=== PATIENT | female | born 1955 | race Caucasian/White ===

== ENCOUNTER → 2016-09-10 | Outpatient (REF) | payer BC ==
[~2016-09-10] MED LIST: ALEV220C2 PO; ASPI1TAB PO; FLUT11IN INH; LISI20TA3 PO; METF500T PO; PAXI20TA3 PO; PRED10TA PO; PROA1AER IN; ZITH250T PO
[2016-09-10 14:23] LABS: ALBUMIN 3.6 GM/DL (3.2-5.2); ALBUMIN/GLOBULIN RATIO 1.13 (1.00-1.93); ALKALINE PHOSPHATASE 61 U/L (45-117); ALT/SGPT 21 U/L (12-78); ANION GAP 7 MEQ/L (8-16); AST/SGOT 14 U/L (15-37); BILIRUBIN,TOTAL 0.3 MG/DL (0.2-1.0); BLOOD UREA NITROGEN 21 MG/DL (7-18); CALCIUM LEVEL 9.4 MG/DL (8.5-10.1); CARBON DIOXIDE LEVEL 35 MEQ/L (21-32); CHLORIDE LEVEL 102 MEQ/L (98-107); CHOLESTEROL LEVEL 201 MG/DL (<200); CREATININE FOR GFR 0.69 MG/DL (0.55-1.02); GLOMERULAR FILTRATION RATE > 60.0 (>51); GLUCOSE, FASTING 123 MG/DL (70-105); POTASSIUM SERUM 4.9 MEQ/L (3.5-5.1); SODIUM LEVEL 144 MEQ/L (136-145); TOTAL PROTEIN 6.8 GM/DL (6.4-8.2); TRIGLYCERIDES LEVEL 147 MG/DL (<150)
== END ==
LOC: M SFHCSACK 08:59
PROVIDERS: ATTEND Physician Assistant
DX: I10 Essential (primary) hypertension (principal); E11.69 Type 2 diabetes mellitus with other specified complication; E11.21 Type 2 diabetes mellitus with diabetic nephropathy

== ENCOUNTER 2017-08-28 13:51 | Emergency (ER) | payer BC ==
[2017-08-28] MEDS: NS 1,000 ML IV (14:45)
[2017-08-28 15:10] LABS: BASO # 0.1 10^3/uL (0.0-0.2); BASO % 0.7 % (0.0-1.0); EOS # 0.1 10^3/uL (0.0-0.50); EOS % 1.7 % (0.0-3.0); HEMATOCRIT 42.8 % (36.0-47.0); HEMOGLOBIN 14.5 g/dl (12.0-16.0); IMMATURE GRANULOCYTE % 0.4 % (0-3.0); LYMPH # 2.1 10^3/uL (1.5-4.5); LYMPH % 29.3 % (24.0-44.0); MEAN CORPUSCULAR HEMOGLOBIN 32.3 pg (27.0-33.0); MEAN CORPUSCULAR HGB CONC 33.9 g/dl (32.0-36.5); MEAN CORPUSCULAR VOLUME 95.3 fl (80.0-96.0); MONO # 0.5 10^3/uL (0.0-0.8); MONO % 6.9 % (0.0-5.0); NEUTROPHILS # 4.4 10^3/uL (1.8-7.7); PLATELET COUNT, AUTOMATED 260 10^3/uL (150-450); RED BLOOD COUNT 4.49 10^6/uL (4.00-5.40); WHITE BLOOD COUNT 7.3 10^3/uL (4.0-10.0)
[2017-08-28 15:14] LABS: INR 0.92; PROTHROMBIN TIME 12.4 SECONDS (12.4-14.5)
[2017-08-28 15:23] LABS: ANION GAP 6 MEQ/L (8-16); BLOOD UREA NITROGEN 18 MG/DL (7-18); CALCIUM LEVEL 8.6 MG/DL (8.8-10.2); CARBON DIOXIDE LEVEL 31 MEQ/L (21-32); CHLORIDE LEVEL 105 MEQ/L (98-107); CREATININE FOR GFR 0.76 MG/DL (0.55-1.30); GLOMERULAR FILTRATION RATE > 60.0 (>45); GLUCOSE, FASTING 119 MG/DL (70-100); POTASSIUM SERUM 3.8 MEQ/L (3.5-5.1); SODIUM LEVEL 142 MEQ/L (136-145)
[2017-08-28 15:25] LABS: CPK CREATINE PHOSPHOKINASE 119 U/L (26-192); TROPONIN I < 0.02 NG/ML (< 0.10)
[2017-08-28 16:36] LABS: CK-MB VALUE MASS 1.8 NG/ML (0.0-3.6); MB/CK RELATIVE INDEX 1.51 (< OR =4)
== END 2017-08-28 17:10 | disposition home or self-care (01) ==
LOC: M ED 13:51
DX: R55 Syncope and collapse (principal); I10 Essential (primary) hypertension; E11.9 Type 2 diabetes mellitus without complications; F17.200 Nicotine dependence, unspecified, uncomplicated; Z79.899 Other long term (current) drug therapy; Z79.82 Long term (current) use of aspirin; Z79.84 Long term (current) use of oral hypoglycemic drugs; Z79.51 Long term (current) use of inhaled steroids
CPT/HCPCS: 71045

== ENCOUNTER → 2017-09-11 | Outpatient (REF) | payer BC ==
[2017-09-11 14:21] LABS: BASO # 0.1 10^3/uL (0.0-0.2); BASO % 0.9 % (0.0-1.0); EOS # 0.1 10^3/uL (0.0-0.50); EOS % 1.5 % (0.0-3.0); HEMATOCRIT 42.9 % (36.0-47.0); HEMOGLOBIN 14.4 g/dl (12.0-16.0); IMMATURE GRANULOCYTE % 0.3 % (0-3.0); LYMPH # 2.5 10^3/uL (1.5-4.5); LYMPH % 36.8 % (24.0-44.0); MEAN CORPUSCULAR HEMOGLOBIN 31.9 pg (27.0-33.0); MEAN CORPUSCULAR HGB CONC 33.6 g/dl (32.0-36.5); MEAN CORPUSCULAR VOLUME 94.9 fl (80.0-96.0); MONO # 0.5 10^3/uL (0.0-0.8); MONO % 7.2 % (0.0-5.0); NEUTROPHILS # 3.5 10^3/uL (1.8-7.7); NEUTROPHILS % 53.3 % (36.0-66.0); PLATELET COUNT, AUTOMATED 262 10^3/uL (150-450); RED BLOOD COUNT 4.52 10^6/uL (4.00-5.40); RED CELL DISTRIBUTION WIDTH 12.7 % (11.5-14.5); WHITE BLOOD COUNT 6.7 10^3/uL (4.0-10.0)
[2017-09-11 14:39] LABS: ALBUMIN 3.7 GM/DL (3.2-5.2); ALBUMIN/GLOBULIN RATIO 1.23 (1.00-1.93); ALKALINE PHOSPHATASE 54 U/L (45-117); ALT/SGPT 21 U/L (12-78); ANION GAP 8 MEQ/L (8-16); AST/SGOT 13 U/L (7-37); BILIRUBIN,TOTAL 0.4 MG/DL (0.2-1.0); BLOOD UREA NITROGEN 20 MG/DL (7-18); CALCIUM LEVEL 8.6 MG/DL (8.8-10.2); CARBON DIOXIDE LEVEL 31 MEQ/L (21-32); CHLORIDE LEVEL 102 MEQ/L (98-107); CHOLESTEROL LEVEL 183 MG/DL (<200); CREATININE FOR GFR 0.79 MG/DL (0.55-1.30); GLOMERULAR FILTRATION RATE > 60.0 (>45); GLUCOSE, FASTING 121 MG/DL (70-100); HDL CHOLESTEROL 57 MG/DL (>40); LDL CHOLESTEROL 99.2 MG/DL (<100); NON-HDL-C 126 MG/DL; POTASSIUM SERUM 4.7 MEQ/L (3.5-5.1); SODIUM LEVEL 141 MEQ/L (136-145); TOTAL PROTEIN 6.7 GM/DL (6.4-8.2); TRIGLYCERIDES LEVEL 134 MG/DL (<150)
[2017-09-11 14:45] LABS: ESTIMATED AVERAGE GLUCOSE 151 MG/DL (60-110); HEMOGLOBIN A1c 6.9 %
[2017-09-11 15:02] LABS: MAU/CREAT RATIO 133.8 MCG/MG (0.0-30.0)
[2017-09-11 15:14] LABS: TOTAL 25(OH) VITAMIN D 14.4 NG/ML (30.0-100.0)
== END ==
LOC: M SFHCSACK 10:47
DX: E78.2 Mixed hyperlipidemia (principal); I10 Essential (primary) hypertension; E11.21 Type 2 diabetes mellitus with diabetic nephropathy; E55.9 Vitamin D deficiency, unspecified
CPT/HCPCS: 80053

== ENCOUNTER → 2017-12-10 | Outpatient (REF) | payer BC | LOC: M SFHCWAGY 10:38 | DX: Z12.4 Encounter for screening for malignant neoplasm of cervix (principal) ==

== ENCOUNTER → 2017-12-10 | Outpatient (CLI) | payer BC | LOC: M WHC 09:18 | DX: Z12.31 Encounter for screening mammogram for malignant neoplasm of breast (principal) ==

== ENCOUNTER → 2018-01-28 | Outpatient (CLI) | payer BC ==
[2018-01-28 09:10] LABS: ABG BASE EXCESS -0.7 (-2.0-2.0); ABG HCO3 24.5 MEQ/L (22.0-26.0); ABG O2 SATURATION 90.3 % (95.0-99.0); ABG PARTIAL PRESSURE O2 58.8 mmHg (75.0-100.0); ABG STANDARD HCO3 23.8 MEQ/L (22.0-26.0); ABG TOTAL CO2 25.7 MEQ/L (23.0-31.0); ABG pH (ARTERIAL) 7.383 UNITS (7.350-7.450)
== END ==
LOC: M RAD 08:21
DX: Z12.2 Encounter for screening for malignant neoplasm of respiratory organs (principal); Z87.891 Personal history of nicotine dependence
CPT/HCPCS: G0297

== ENCOUNTER → 2018-01-31 | Outpatient (REF) | payer BC ==
[2018-01-31 15:22] LABS: BASO # 0.1 10^3/uL (0.0-0.2); BASO % 0.8 % (0.0-1.0); EOS # 0.2 10^3/uL (0.0-0.50); HEMATOCRIT 42.3 % (36.0-47.0); IMMATURE GRANULOCYTE % 0.3 % (0-3.0); LYMPH # 2.5 10^3/uL (1.5-4.5); LYMPH % 38.1 % (24.0-44.0); MEAN CORPUSCULAR HEMOGLOBIN 32.5 pg (27.0-33.0); MEAN CORPUSCULAR HGB CONC 33.1 g/dl (32.0-36.5); MEAN CORPUSCULAR VOLUME 98.1 fl (80.0-96.0); MONO # 0.5 10^3/uL (0.0-0.8); MONO % 6.8 % (0.0-5.0); NEUTROPHILS # 3.4 10^3/uL (1.8-7.7); RED BLOOD COUNT 4.31 10^6/uL (4.00-5.40); RED CELL DISTRIBUTION WIDTH 12.7 % (11.5-14.5); WHITE BLOOD COUNT 6.6 10^3/uL (4.0-10.0)
[2018-01-31 15:39] LABS: ESTIMATED AVERAGE GLUCOSE 146 MG/DL (60-110); HEMOGLOBIN A1c 6.7 %
[2018-01-31 15:51] LABS: ALBUMIN 3.4 GM/DL (3.2-5.2); ALBUMIN/GLOBULIN RATIO 1.06 (1.00-1.93); ALKALINE PHOSPHATASE 46 U/L (45-117); ALT/SGPT 21 U/L (12-78); ANION GAP 7 MEQ/L (8-16); AST/SGOT 18 U/L (7-37); BILIRUBIN,TOTAL 0.3 MG/DL (0.2-1.0); BLOOD UREA NITROGEN 20 MG/DL (7-18); CALCIUM LEVEL 8.5 MG/DL (8.8-10.2); CARBON DIOXIDE LEVEL 30 MEQ/L (21-32); CHLORIDE LEVEL 108 MEQ/L (98-107); CREATININE FOR GFR 0.72 MG/DL (0.55-1.30); GLOMERULAR FILTRATION RATE > 60.0 (>45); GLUCOSE, FASTING 87 MG/DL (70-100); SODIUM LEVEL 145 MEQ/L (136-145); TOTAL PROTEIN 6.6 GM/DL (6.4-8.2)
[2018-01-31 15:57] LABS: POS COUNT POS FLAG
[2018-01-31 15:58] LABS: PLATELET COUNT, AUTOMATED 228 10^3/uL (150-450)
[2018-01-31 16:01] LABS: POTASSIUM SERUM 5.5 MEQ/L (3.5-5.1)
== END ==
LOC: M SFHCSACK 08:57
DX: I10 Essential (primary) hypertension (principal); E11.21 Type 2 diabetes mellitus with diabetic nephropathy; Z13.29 Encounter for screening for other suspected endocrine disorder; E55.9 Vitamin D deficiency, unspecified
CPT/HCPCS: 84443

== ENCOUNTER → 2018-05-26 | Outpatient (REF) | payer BC ==
[2018-05-26 14:15] LABS: BASO # 0.1 10^3/uL (0.0-0.2); BASO % 0.7 % (0.0-1.0); EOS # 0.2 10^3/uL (0.0-0.50); EOS % 3.1 % (0.0-3.0); HEMATOCRIT 43.7 % (36.0-47.0); HEMOGLOBIN 14.4 g/dl (12.0-15.5); IMMATURE GRANULOCYTE % 0.3 % (0-3.0); LYMPH # 2.4 10^3/uL (1.5-4.5); LYMPH % 32.9 % (24.0-44.0); MEAN CORPUSCULAR HEMOGLOBIN 32.5 pg (27.0-33.0); MEAN CORPUSCULAR VOLUME 98.6 fl (80.0-96.0); MONO # 0.5 10^3/uL (0.0-0.8); PLATELET COUNT, AUTOMATED 297 10^3/uL (150-450); RED BLOOD COUNT 4.43 10^6/uL (4.00-5.40); RED CELL DISTRIBUTION WIDTH 13.3 % (11.5-14.5); WHITE BLOOD COUNT 7.2 10^3/uL (4.0-10.0)
[2018-05-26 14:17] LABS: ALBUMIN 3.3 GM/DL (3.2-5.2); ALBUMIN/GLOBULIN RATIO 1.06 (1.00-1.93); ALKALINE PHOSPHATASE 70 U/L (45-117); ALT/SGPT 23 U/L (12-78); ANION GAP 8 MEQ/L (8-16); AST/SGOT 14 U/L (7-37); BILIRUBIN,TOTAL 0.2 MG/DL (0.2-1.0); BLOOD UREA NITROGEN 21 MG/DL (7-18); CALCIUM LEVEL 8.3 MG/DL (8.8-10.2); CARBON DIOXIDE LEVEL 32 MEQ/L (21-32); CHLORIDE LEVEL 104 MEQ/L (98-107); CHOLESTEROL LEVEL 214 MG/DL (<200); CHOLESTEROL RISK RATIO 3.821 (<5); CREATININE FOR GFR 0.72 MG/DL (0.55-1.30); GLOMERULAR FILTRATION RATE > 60.0 (>45); GLUCOSE, FASTING 102 MG/DL (70-100); HDL CHOLESTEROL 56 MG/DL (>40); LDL CHOLESTEROL 132 MG/DL (<100); NON-HDL-C 158 MG/DL; POTASSIUM SERUM 4.3 MEQ/L (3.5-5.1); SODIUM LEVEL 144 MEQ/L (136-145); TOTAL PROTEIN 6.4 GM/DL (6.4-8.2); TRIGLYCERIDES LEVEL 131 MG/DL (<150)
[2018-05-26 14:26] LABS: TOTAL 25(OH) VITAMIN D 33.9 NG/ML (30.0-100.0)
[2018-05-26 14:55] LABS: ESTIMATED AVERAGE GLUCOSE 137 MG/DL (60-110); HEMOGLOBIN A1c 6.4 %
== END ==
LOC: M SFHCSACK 09:29
DX: I10 Essential (primary) hypertension (principal); E78.2 Mixed hyperlipidemia; E11.9 Type 2 diabetes mellitus without complications; E55.9 Vitamin D deficiency, unspecified
CPT/HCPCS: 80053

== ENCOUNTER → 2018-12-03 | Outpatient (REF) | payer BC ==
[~2018-12-03] MED LIST changes: -ASPI1TAB PO; +ASPI81TA26 PO; -METF500T PO; +METF500T13 PO; +PAXI20TA29 PO; -PAXI20TA3 PO; +PRED-351 PO; -PRED10TA PO; -PROA1AER IN; +PROAAER10 IN
[2018-12-03 14:16] LABS: BASO # 0.1 10^3/uL (0.0-0.2); BASO % 0.8 % (0.0-1.0); EOS # 0.2 10^3/uL (0.0-0.50); HEMATOCRIT 45.6 % (36.0-47.0); HEMOGLOBIN 14.9 g/dl (12.0-15.5); LYMPH # 1.9 10^3/uL (1.5-4.5); LYMPH % 32.4 % (24.0-44.0); MEAN CORPUSCULAR HEMOGLOBIN 32.4 pg (27.0-33.0); MEAN CORPUSCULAR HGB CONC 32.7 g/dl (32.0-36.5); MEAN CORPUSCULAR VOLUME 99.1 fl (80.0-96.0); MONO # 0.5 10^3/uL (0.0-0.8); MONO % 7.5 % (0.0-5.0); NEUTROPHILS # 3.4 10^3/uL (1.8-7.7); NEUTROPHILS % 56.1 % (36.0-66.0); PLATELET COUNT, AUTOMATED 257 10^3/uL (150-450)
[2018-12-03 14:45] LABS: ALBUMIN 3.3 GM/DL (3.2-5.2); ALT/SGPT 24 U/L (12-78); BILIRUBIN,TOTAL 0.3 MG/DL (0.2-1.0); BLOOD UREA NITROGEN 18 MG/DL (7-18); CALCIUM LEVEL 8.4 MG/DL (8.8-10.2); CARBON DIOXIDE LEVEL 30 MEQ/L (21-32); CHLORIDE LEVEL 108 MEQ/L (98-107); CHOLESTEROL LEVEL 228 MG/DL (<200); CHOLESTEROL RISK RATIO 3.562 (<5); CREATININE FOR GFR 0.66 MG/DL (0.55-1.30); GLOMERULAR FILTRATION RATE > 60.0 (>45); GLUCOSE, FASTING 120 MG/DL (70-100); HDL CHOLESTEROL 64 MG/DL (>40); LDL CHOLESTEROL 139 MG/DL (<100); NON-HDL-C 164 MG/DL; POTASSIUM SERUM 4.1 MEQ/L (3.5-5.1); SODIUM LEVEL 143 MEQ/L (136-145); TOTAL PROTEIN 7.1 GM/DL (6.4-8.2); TRIGLYCERIDES LEVEL 127 MG/DL (<150)
[2018-12-03 14:51] LABS: TOTAL 25(OH) VITAMIN D 18.8 NG/ML (30.0-100.0)
[2018-12-03 14:57] LABS: CREATININE, URINE 90.2 MG/DL; MALB URINE SIEMENS 34.3 MG/L
[2018-12-03 15:37] LABS: HEMOGLOBIN A1c 7.1 %
== END ==
LOC: M SFHCSACK 09:22
PROVIDERS: ATTEND Physician Assistant
DX: I10 Essential (primary) hypertension (principal); E78.2 Mixed hyperlipidemia; E11.21 Type 2 diabetes mellitus with diabetic nephropathy; E55.9 Vitamin D deficiency, unspecified

== ENCOUNTER → 2018-12-16 | Outpatient (CLI) | payer BC ==
--- NOTE | 2018-12-16 10:49 | REPMRS ---
Patient History The patient states she had a clinical breast exam in 11/2018. Patient is postmenopausal. Family history of ovarian cancer at age 50 or over in maternal aunt, ovarian cancer at age 50 or over in paternal cousin. No Hormone Replacement Therapy Digital Woman Screen Mammo: December 16, 2018 - Exam #: [id number] Bilateral CC and MLO view(s) were taken. Technologist: Chastity Sahu, Technologist Prior study comparison: December 10, 2017, bilateral digital woman screen mammo performed at [facility]. April 20, 2010, bilateral screening mammogram, performed at [facility]. December 01, 2008, bilateral screening mammogram, performed at [facility]. FINDINGS: There are scattered fibroglandular densities. There has been no change in the appearance of the mammogram from the prior studies. There is a mild amount of scattered fibroglandular density which is fairly symmetric. There is no interval development of dominant mass, architectural distortion, or clustered microcalcification suggestive of malignancy. 3-D tomosynthesis shows no additional findings. Assessment: BI-RADS/ACR category 1 mammogram. Negative Mammogram. Recommendation Routine screening mammogram of both breasts in 1 year (for women over age 40). This patient's Lifetime Breast Cancer RIsk is estimated at 5.5 %. This mammogram was interpreted with the aid of an FDA-approved computer-aided dectection system. Electronically Signed By: Dada Fairchild MD 12/16/18 [id number]
== END ==
LOC: M WHC 09:07
PROVIDERS: ATTEND Nurse Practitioner Women's Health
DX: Z12.31 Encounter for screening mammogram for malignant neoplasm of breast (principal); Z78.0 Asymptomatic menopausal state

== ENCOUNTER → 2019-03-31 | Outpatient (CLI) | payer BC ==
[~2019-03-31] MED LIST changes: +LISI20TA20 PO; -LISI20TA3 PO
--- NOTE | 2019-03-31 10:37 | REP ---
REASON FOR EXAM: Tobacco abuse. COMPARISON EXAM: 01/28/2018. As per the protocol only lung window images were sent to the read station for interpretation. There is no significant change compared to the prior exam. There are no new abnormal nodules, mass, or opacities. Grossly the mediastinum and pulmonary pardeep are stable. Grossly the imaged upper abdomen and imaged osseous structures are stable. There are no pleural or pericardial effusions. IMPRESSION: No change from the prior exam. Lung-RADS category 1 exam. According to the revised Fleischner's Society criteria yearly CT screening is recommended. Electronically Signed by Wei Rosario DO 03/31/2019 02:37 P
== END ==
LOC: M RAD 09:27
PROVIDERS: ATTEND Internal Medicine Pulmonary Disease
DX: F17.210 Nicotine dependence, cigarettes, uncomplicated (principal)

== ENCOUNTER 2019-09-05 00:25 | Inpatient (IN) | payer BC ==
[2019-09-05] VITALS (7 sets, daily range): BP systolic 130–144; BP diastolic 63–80
[~2019-09-05] VITALS: Ht 162.6 cm; Wt 111.6 kg
[2019-09-05 01:17] LABS: BASO # 0.1 10^3/uL (0.0-0.2); BASO % 0.4 % (0.0-1.0); EOS # 0.1 10^3/uL (0.0-0.5); EOS % 0.7 % (0.0-3.0); HEMATOCRIT 45.3 % (36.0-47.0); HEMOGLOBIN 14.9 g/dl (12.0-15.5); LYMPH # 1.6 10^3/uL (1.5-5.0); LYMPH % 11.9 % (24.0-44.0); MEAN CORPUSCULAR HEMOGLOBIN 31.7 pg (27.0-33.0); MEAN CORPUSCULAR HGB CONC 32.9 g/dl (32.0-36.5); MEAN CORPUSCULAR VOLUME 96.4 fl (80.0-96.0); MONO # 0.9 10^3/uL (0.0-0.8); MONO % 6.5 % (0.0-5.0); NEUTROPHILS # 11.1 10^3/uL (1.5-8.5); NEUTROPHILS % 80.1 % (36.0-66.0); PLATELET COUNT, AUTOMATED 224 10^3/uL (150-450); WHITE BLOOD COUNT 13.8 10^3/uL (4.0-10.0)
[2019-09-05] MEDS: MORPHINE 4 MG/ML 1ML VIAL/SYRINGE (J2270) IV PRN ×2 (01:39→03:44)
[2019-09-05] MEDS ORDERED: ISOVUE-370 76% 100ML VIAL (Q9967) As Ordered ONE (01:42)
[2019-09-05 02:02] LABS: ALBUMIN 3.4 GM/DL (3.2-5.2); ALT/SGPT 21 U/L (12-78); BILIRUBIN,DIRECT < 0.1 MG/DL (0.0-0.2); BILIRUBIN,TOTAL 0.5 MG/DL (0.2-1.0); CK-MB VALUE MASS 1.2 NG/ML (<3.6); CPK CREATINE PHOSPHOKINASE 213 U/L (26-192); LIPASE 74541 U/L (73-393); MB/CK RELATIVE INDEX 0.56 (< OR =4); TOTAL PROTEIN 6.9 GM/DL (6.4-8.2); TROPONIN I < 0.02 NG/ML (< 0.10)
--- NOTE | 2019-09-05 02:24 | REPVR ---
PROCEDURE INFORMATION: Exam: CT Abdomen And Pelvis With Contrast Exam date and time: 09/05/2019 1:01 AM Age: 63 years old Clinical indication: Abdominal pain; Epigastric; Additional info: Generalized abd pain TECHNIQUE: Imaging protocol: Computed tomography of the abdomen and pelvis with intravenous contrast. Radiation optimization: All CT scans at this facility use at least one of these dose optimization techniques: automated exposure control; mA and/or kV adjustment per patient size (includes targeted exams where dose is matched to clinical indication); or iterative reconstruction. Contrast material: ISO; Contrast volume: 100 ml; Contrast route: AC; COMPARISON: No relevant prior studies available. FINDINGS: Liver: Hepatomegaly and steatosis. Gallbladder and bile ducts: Normal. No calcified stones. No ductal dilation. Pancreas: Pancreatic edema with extensive peripancreatic fluid. Spleen: Normal. No splenomegaly. Adrenals: Normal. No mass. Kidneys and ureters: Nonobstructing bilateral nephrolithiasis. Stomach and bowel: Diverticulosis of the colon. No evidence of acute diverticulitis. Appendix: No evidence of appendicitis. Intraperitoneal space: Unremarkable. No free air. No significant fluid collection. Vasculature: Atherosclerotic disease of the abdominal aorta. Lymph nodes: Unremarkable. No enlarged lymph nodes. Bladder: Unremarkable as visualized. Reproductive: Unremarkable as visualized. Bones/joints: Degenerative disease and facet hypertrophy at L4-L5. Mild stenosis of the spinal canal and neural foramina at this level. Soft tissues: Unremarkable. IMPRESSION: Acute pancreatitis. Electronically signed by: Sukhwinder Eduardo On 09/05/2019 02:23:53 AM
[2019-09-05] MEDS ORDERED: NS 3,140 ML in IV 1 EA IV ONE (02:45)
[2019-09-05] MEDS ORDERED: DEXTROSE 50% 50 ML SYRINGE IV PRN (03:00)
[2019-09-05] MEDS ORDERED: GLUCAGON FOR INJ 1 MG VIAL (J1610) SC PRN (03:00)
[2019-09-05] MEDS ORDERED: ONDANSETRON 4MG/2ML VIAL (J2405) IV PRN (03:00)
[2019-09-05] MEDS ORDERED: GLUCOSE 4 GM CHEW TABLET PO PRN (03:00)
[2019-09-05] MEDS ORDERED: FLUT11IN INH (03:09)
[2019-09-05] MEDS ORDERED: PARO40TA3 PO (03:09)
[2019-09-05] MEDS ORDERED: LISI-672 PO (03:09)
[2019-09-05] MEDS ORDERED: HYDR25TAB PO (03:09)
[2019-09-05] MEDS ORDERED: PROAAER10 INH (03:10)
--- NOTE | 2019-09-05 03:12 | HPEPDOC ---
[facility] Medical History & Physical Date of Admission Sep 05, 2019 Date of Service: Sep 05, 2019 Primary Care Physician: Ivana Herrera PA-C ER Attending Physician: YEHUDA DELAROSA MD History and Physical TIME OF SERVICE: 3:15 AM CHIEF COMPLAINT: Abdominal pain HISTORY OF PRESENT ILLNESS: This is a 63-year-old female who presented with complaints of sudden onset 10 out of 10 in severity, epigastric abdominal pain that radiates to her back. It is made worse when she takes a deep breath. The pain began around 9 PM after she drank a glass of wine. She also had chills, poor appeite, 6 episodes of nonbloody emesis, and 5 episodes of nonbloody diarrhea in the last [address] Cruz, her lipase was 74,[address] showed findings consistent with pancreatitis. REVIEW OF SYSTEMS: 12 point review of systems negative except as listed in HPI PAST MEDICAL/ SURGICAL HISTORY: Olq-bynndnw-pstjyoexc diabetes. COPD Anxiety/depression. Chronic HTN Dyslipidemia. Carpal tunnel syndrome. Left oophorectomy SOCIAL HISTORY: quit smoking drinks alcohol occasionally FAMILY HISTORY: Father as a result of liver failure and alcoholism. Mother has hypertension and leukemia. Siblings have hypertension. Maternal grandmother had diabetes Maternal aunt and paternal cousin had ovarian cancer ALLERGIES: Please see below. HOME MEDICATIONS: Please see below. Vital Signs Date Time Temp Pulse Resp B/P (MAP) Pulse Ox O2 Delivery O2 Flow Rate FiO2 09/05/19 00:34 98.9 81 18 174/91 99 Nasal Cannula 2.0 PHYSICAL EXAMINATION: GEN: well-nourished / well developed INTEGUMENT: not flushed/ not jaundice / no trejo or herring's sign HEENT: NCAT / lips acyanotic /mucus membranes moist and pink / mild conjunctival injection CVS: RRR/NMRG/ no JVP / radial pulses intact / + extremity edema LUNGS: clear to auscultation bilaterally on room air ABDOMEN: Contour (obese) / bowel sounds are present / the abdomen is tympanic on percussion, soft & tender in the epigastric region / there is no rebound tenderness MSK/EXTREMITIES: range of motion intact in all 4 extremities NEURO: CN 2-12 are grossly intact / speech is not dysarthric PSYCH: alert and oriented to person place and time/ able to understand and follow all commands LABORATORY DATA: Total Bilirubin 0.5, Direct Bilirubin < 0.1, Aspartate Amino Transf (AST/SGOT) 39H, Alanine Aminotransferase (ALT/SGPT) 21, Alkaline Phosphatase 55, Total Creatine Kinase 213H, Creatine Kinase MB 1.2, Creatine Kinase MB Relative Index 0.56, Troponin I < 0.02, Total Protein 6.9, Albumin 3.4, Albumin/Globulin Ratio 0.97L, Lipase [id number] POC Glucose (Misc Panel) 183H, POC Sodium (Misc Panel) 140, POC Potassium (Misc Panel) 5.1, POC Chloride (Misc Panel) 100, POC Total CO2 (Misc Panel) 34.0H, POC Blood Urea Nitrogen (Misc Panel 35H, POC Ionized Calcium (Misc Panel) 4.4L, POC Creatinine (Misc Panel) 0.8, POC Hematocrit (Misc Panel) 47.0 IMAGING: CT of the abdomen " IMPRESSION: Acute pancreatitis." ASSESSMENT: Ms. Parrish is a 63-year-old with a past medical history of NIDDM, HTN, anxiety, depression, and dyslipidemia who is admitted for management of acute pancreatitis, possibly due to alcohol use. PLAN: 1. Acute Pancreatitis Diagnosis made on the basis of abdominal pain + elevated lipase + CT findings c/w pancreatitis May have been triggered by alcohol use. The AST is slightly elevated but the rest of LFTs are within normal limits Harmless Acute Pancreatitis Score to r/o need for ICU admission for 1st episode of pancreatitis = 0 points - not severe Plan: Since she doesn't have SIRS criteria we will admit her to the medical floor/ NPO/ LR at 250-500 ml/H / f/u serum ETO / IV toradol PRN for pain / zofran for vomiting 2. Alcohol Abuse ? - Plan: CIWA protocol w fall and seizure precautions, IV Ativan, folic acid and thiamine 3. Type II NIDDM - Plan: diabetic diet / f/u accuchecks & A1C / hypoglycemia protocol / sliding scale insulin / hold oral anti-glycemics 4. Chronic HTN - Plan: control pain / resume lisinopril and hydrochlorothiazide in the morning 5. Obesity with BMI of 39.5 complicates care. Since her BMI >35 and she has DM she is candidate for bariatric surgery. - Plan: f/u A1C / shecan f/u w her PCP for STOP BANG questionnaire, mill roll rewinder consult & referral to Bariatric Surgeon / recommend cardiovascular exercise for 40 min 4-5 days a week DVT PROPHYLAXIS: Lovenox DISPOSITION: Home after more than 2 midnight's stay Home Medications Scheduled Aspirin (Aspirin EC) 81 Mg Tab, 81 MG PO DAILY Fluticasone Propionate (Flovent Hfa) 110 Mcg/Act Aer.w.adap, 2 PUFF INH BID Hydrochlorothiazide (Hydrochlorothiazide) 25 Mg Tablet, 25 MG PO DAILY Lisinopril (Lisinopril) 30 Mg Tablet, 30 MG PO DAILY Metformin HCl (Metformin HCl) 500 Mg Tab, 1,000 MG PO BID Paroxetine HCl (Paroxetine) 40 Mg Tablet, 40 MG PO DAILY Scheduled PRN Albuterol Sulfate (Proair Hfa) 8.5 Gm Hfa.aer.ad, 2 PUFF INH Q4-6HP PRN for wheezing Allergies Coded Allergies: No Known Drug Allergies (Verified Allergy, Unknown, 09/05/19) A-FIB/CHADSVASC A-FIB History Current/History of A-Fib/PAF?: No Current PO Anticoag Therapy: No YEHUDA DELAROSA MD Sep 05, 2019 03:12
[2019-09-05] MEDS ORDERED: METOPROLOL 5 MG/5 ML VIAL IV PRN (03:30)
[2019-09-05] MEDS ORDERED: LORazepam 2 MG/ML VIAL (J2060) IV PRN ×2 (03:30→09:45)
[2019-09-05 03:44] LABS: HEMOGLOBIN A1c 6.4 %
[2019-09-05] MEDS ORDERED: VITA50005 PO (03:48)
[2019-09-05 04:21] LABS: ETHYL ALCOHOL (ETHANOL) < 0.003 % (0.000-0.010); LDH LACTATE DEHYDROGENASE 159 U/L (84-246)
[2019-09-05] MEDS: LR 1,000 ML IV SCH ×3 (05:23→17:14)
[2019-09-05] MEDS: HumaLOG INSULIN (NovoLOG) PER UNIT SC SCH ×3 (05:33→17:52)
[2019-09-05] MEDS: KETOROLAC 30 MG/ML VIAL (J1885) IV PRN ×3 (05:34→21:25)
[2019-09-05] MEDS ORDERED: metFORMIN (GLUCOPHAGE) 500 MG TAB PO SCH (08:00)
[2019-09-05] MEDS ORDERED: THIAMINE HCL 200 MG/2 ML VIAL (J3411) IM SCH (09:00)
[2019-09-05] MEDS ORDERED: hydroCHLOROthiazide 25 MG TAB PO SCH (09:00)
[2019-09-05] MEDS: ENOXAPARIN 40 MG/0.4 ML SYRINGE (J1650) SC SCH (09:20)
[2019-09-05] MEDS: THIAMINE 100 MG TAB PO SCH (09:20)
[2019-09-05] MEDS: lisinopriL 10 MG TAB PO SCH (09:20)
[2019-09-05] MEDS: PARoxetine 20 MG TAB PO SCH (09:20)
[2019-09-05] MEDS: FOLIC ACID 1 MG in NS 50 ML IV SCH (09:21)
--- NOTE | 2019-09-05 09:43 | IPN ---
DATE: 09/05/2019 PRIMARY CARE PROVIDER: JASON Krishnan, [facility] Joyce is on the hospitalist service with acute pancreatitis. She has not had this previously. She has a history of type 2 diabetes but is not on any medications known to cause this, chronic hypertension (is on angiotensin converting enzymes (VIANEY) inhibitors, a rare cause of pancreatitis), she does not have any significant alcohol intake and no history of biliary disease. She is still having abdominal pain, though it is better. No nausea, not running any fevers. Today is 140/70, pulse 70, respiratory rate 18, 95% oxygen saturation on three liters. General appearance: Resting in bed, no distress. HEENT: Unremarkable. Lungs: Clear. Heart: Regular rhythm. Abdomen: Soft, slightly tender, no masses, no ascites. Trace peripheral edema. LABORATORY DATA: No labs were ordered for this morning. IMPRESSION: 1. Acute pancreatitis. Continue just sips of clear liquid and will hydrate intravenously. If she continues to do well, we will advance her diet tomorrow. She is well-perfused and I am reducing her IV rate. 2. Type 2 diabetes. Sliding scale insulin with coverage. Stop her metformin in fact of the pancreatitis. 3. Hypertension. Stop her hydrochlorothiazide. She is receiving IV fluids so there is no role for a diuretic at this point. Continue lisinopril, unlikely lisinopril is the cause of her pancreatitis, though we do have to consider that possibility. 4. History of depression. Continue her Paxil 40 mg daily. 5. Question of alcohol abuse. I think it is unlikely that her alcohol intake is significant enough to be contributing to the pancreatitis. I am stopping the intramuscular (IM) thiamine, she can take that as easily orally as through intramuscular (IM) route.
[2019-09-05] MEDS ORDERED: ALBUTEROL 90 MCG/ACT 8GM HFA INHALER INH PRN (10:45)
--- NOTE | 2019-09-05 14:17 | REP ---
Chest x-ray: Two views. History: Increased oxygen demand. Comparison study: August 28, 2017. Findings: The lungs are symmetrically aerated and clear. There are degenerative changes in the thoracic spine. Heart size is normal. The aorta somewhat tortuous. Pulmonary vasculature is not increased. Impression: No active disease. Electronically Signed by Jhonatan Fairchild MD 09/05/2019 02:08 P
[2019-09-05] MEDS ORDERED: ALBUTEROL SULFATE 2.5 MG/0.5 ML INH NEB SOLN NEB PRN (14:30)
--- NOTE | 2019-09-05 18:45 | ECGEPIP ---
[facility] - ED Test Date: 2019-09-05 Pat Name: RANI PATEL Department: Room: [place] [address] Gender: Female Econometrician: anoop : 1955 Requested By: RICARDO Murrell Order Number: [id number] Reading MD: Shira Easley Measurements Intervals [place] Rate: 76 P: 55 TX: 129 QRS: 82 QRSD: 110 T: 37 QT: 388 QTc: 438 Interpretive Statements SINUS RHYTHM NSTTW abnormalities DECREASED RATE 08/28/17 Electronically Signed on 09-05-2019 18:45:19 EST by Shira Easley
[2019-09-05] MEDS: IPRATROPIUM 0.5MG/ALBUTEROL 2.5MG INH SOL UD 3ML (DUONEB)(J7620) NEB SCH (21:35)
[2019-09-05] MEDS: FLUTICASONE HFA 110 MCG 12 GM INHALER (FLOVENT) INH SCH (21:36)
[2019-09-06] VITALS (7 sets, daily range): BP systolic 110–158; BP diastolic 58–81
[2019-09-06] MEDS: LR 1,000 ML IV SCH ×4 (00:55→22:52)
[2019-09-06] MEDS: HumaLOG INSULIN (NovoLOG) PER UNIT SC SCH ×4 (01:09→21:00)
[2019-09-06] MEDS: IPRATROPIUM 0.5MG/ALBUTEROL 2.5MG INH SOL UD 3ML (DUONEB)(J7620) NEB SCH ×4 (02:03→20:00)
[2019-09-06 05:55] LABS: HEMATOCRIT 38.7 % (36.0-47.0); MEAN CORPUSCULAR HEMOGLOBIN 32.6 pg (27.0-33.0); MEAN CORPUSCULAR HGB CONC 32.6 g/dl (32.0-36.5); MEAN CORPUSCULAR VOLUME 100.3 fl (80.0-96.0); PLATELET COUNT, AUTOMATED 189 10^3/uL (150-450); RED BLOOD COUNT 3.86 10^6/uL (4.00-5.40); WHITE BLOOD COUNT 7.8 10^3/uL (4.0-10.0)
[2019-09-06 06:03] LABS: HEMOGLOBIN 12.6 g/dl (12.0-15.5)
[2019-09-06 06:15] LABS: MAGNESIUM LEVEL 1.2 MG/DL (1.8-2.4)
[2019-09-06] MEDS: FLUTICASONE HFA 110 MCG 12 GM INHALER (FLOVENT) INH SCH ×2 (07:48→20:37)
[2019-09-06] MEDS: FOLIC ACID 1 MG in NS 50 ML IV SCH (08:58)
[2019-09-06] MEDS: PARoxetine 20 MG TAB PO SCH (08:58)
[2019-09-06] MEDS: ENOXAPARIN 40 MG/0.4 ML SYRINGE (J1650) SC SCH (08:58)
[2019-09-06] MEDS: THIAMINE 100 MG TAB PO SCH (08:59)
[2019-09-06] MEDS: lisinopriL 10 MG TAB PO SCH (08:59)
[2019-09-06] MEDS ORDERED: FLUBLOK(EGG FREE)(QUAD)INFLUENZA VACC 0.5ML SYRINGE (90682)18YRS&OLDER IM ONE (09:00)
[2019-09-06] MEDS ORDERED: MAG SULF 1GM/100ML (MAG RUN) 1 GM in IV 1 EA IV ONE (10:00)
[2019-09-06 10:04] LABS: ALBUMIN 2.9 GM/DL (3.2-5.2); ALT/SGPT 16 U/L (12-78); BILIRUBIN,TOTAL 0.5 MG/DL (0.2-1.0); BLOOD UREA NITROGEN 19 MG/DL (7-18); CALCIUM LEVEL 7.9 MG/DL (8.8-10.2); CARBON DIOXIDE LEVEL 30 MEQ/L (21-32); CHLORIDE LEVEL 106 MEQ/L (98-107); CREATININE FOR GFR 0.67 MG/DL (0.55-1.30); GLOMERULAR FILTRATION RATE > 60.0 (>45); GLUCOSE, FASTING 108 MG/DL (70-100); LIPASE 2031 U/L (73-393); POTASSIUM SERUM 3.3 MEQ/L (3.5-5.1); SODIUM LEVEL 142 MEQ/L (136-145)
[2019-09-06] MEDS: KCL 10MEQ/100ML SWI (KRUN) 10 MEQ in IV 1 EA IV SCH ×4 (11:28→15:09)
--- NOTE | 2019-09-06 12:39 | IPN ---
DATE: 09/06/2019 Joyce feels better, less abdominal pain. She would like to advance her diet. She got a little short of breath yesterday, but a chest x-ray showed no active disease. I reduced her intravenous (IV) fluids. PHYSICAL EXAMINATION: Afebrile. 146/70. No distress, resting comfortably. HEENT: Unremarkable. No jugular venous distention (JVD). LUNGS: Clear. HEART: Regular rate. No murmur. ABDOMEN: Soft, nondistended. Mildly tender diffusely in the upper abdomen. No peripheral edema. LABORATORIES: Magnesium is 1.2. Complete blood count (CBC): White count 7.8, hemoglobin 12.6, platelets 189. Chemistry profile: Pending. Lipase is pending. IMPRESSION: 1. Acute pancreatitis. Etiology is unknown. It is probably idiopathic. It somehow was determined that there is a question of alcohol abuse, but her alcohol intake is minimal, perhaps one glass of wine per week. I am stopping all of the orders directed towards excessive alcohol intake, because I think that was totally inaccurate. Will stop the CIWA protocol. She does not need that either. Etiology of pancreatitis is probably idiopathic. No biliary stones. No incriminating medications (query angiotensin-converting enzyme (VIANEY) inhibitor possibly). No significant alcohol intake. 2. History of depression. Continue her Paxil. 3. Diabetes. Hold her metformin. Continue sliding scale insulin coverage. 4. Hypertension. She is off her antihypertensives. She is off her hydrochlorothiazide. She is currently being hydrated. She is on lisinopril. Blood pressure control is good. 5. She also has seizure precautions, but no history of seizures, and again, no history of alcohol intake of any known, either, so these are being discontinued.
[2019-09-06] MEDS ORDERED: HumaLOG INSULIN (NovoLOG) PER UNIT SC SCH (21:00)
[2019-09-06] MEDS: KETOROLAC 30 MG/ML VIAL (J1885) IV PRN (23:42)
[2019-09-07] VITALS (7 sets, daily range): BP systolic 132–169; BP diastolic 64–81
[2019-09-07] MEDS: IPRATROPIUM 0.5MG/ALBUTEROL 2.5MG INH SOL UD 3ML (DUONEB)(J7620) NEB SCH ×4 (02:00→20:00)
[2019-09-07 04:29] LABS: HEMATOCRIT 36.4 % (36.0-47.0); HEMOGLOBIN 11.7 g/dl (12.0-15.5); MEAN CORPUSCULAR HEMOGLOBIN 31.7 pg (27.0-33.0); MEAN CORPUSCULAR HGB CONC 32.1 g/dl (32.0-36.5); MEAN CORPUSCULAR VOLUME 98.6 fl (80.0-96.0); PLATELET COUNT, AUTOMATED 171 10^3/uL (150-450); RED BLOOD COUNT 3.69 10^6/uL (4.00-5.40); WHITE BLOOD COUNT 7.5 10^3/uL (4.0-10.0)
[2019-09-07 04:56] LABS: ALBUMIN 2.6 GM/DL (3.2-5.2); ALT/SGPT 15 U/L (12-78); BILIRUBIN,TOTAL 0.6 MG/DL (0.2-1.0); BLOOD UREA NITROGEN 11 MG/DL (7-18); CALCIUM LEVEL 7.6 MG/DL (8.8-10.2); CARBON DIOXIDE LEVEL 30 MEQ/L (21-32); CHLORIDE LEVEL 109 MEQ/L (98-107); CREATININE FOR GFR 0.62 MG/DL (0.55-1.30); GLOMERULAR FILTRATION RATE > 60.0 (>45); GLUCOSE, FASTING 119 MG/DL (70-100); LIPASE 506 U/L (73-393); MAGNESIUM LEVEL 1.5 MG/DL (1.8-2.4); POTASSIUM SERUM 3.7 MEQ/L (3.5-5.1); SODIUM LEVEL 144 MEQ/L (136-145); TOTAL PROTEIN 5.5 GM/DL (6.4-8.2)
[2019-09-07] MEDS: LR 1,000 ML IV SCH (05:27)
[2019-09-07] MEDS: HumaLOG INSULIN (NovoLOG) PER UNIT SC SCH ×4 (07:30→21:00)
[2019-09-07] MEDS ORDERED: HumaLOG INSULIN (NovoLOG) PER UNIT SC SCH (07:30)
[2019-09-07] MEDS: FLUTICASONE HFA 110 MCG 12 GM INHALER (FLOVENT) INH SCH ×2 (08:18→20:47)
[2019-09-07] MEDS: lisinopriL 10 MG TAB PO SCH (09:01)
[2019-09-07] MEDS: ENOXAPARIN 40 MG/0.4 ML SYRINGE (J1650) SC SCH (09:02)
[2019-09-07] MEDS: PARoxetine 20 MG TAB PO SCH (09:02)
[2019-09-07] MEDS: THIAMINE 100 MG TAB PO SCH (09:02)
[2019-09-07] MEDS ORDERED: MAG SULF 1GM/100ML (MAG RUN) 1 GM in IV 1 EA IV ONE (11:15)
--- NOTE | 2019-09-07 11:22 | IPN ---
DATE: 09/07/2019 Maninder pancreatitis is improved both clinically and through lab study. Her appetite is still poor, but she says she has less abdominal pain. She is willing to advance her diet. PHYSICAL EXAMINATION: 137/73, pulse 92, afebrile. She is on room air now. General Appearance: Alert, conversant, in no distress. Lungs: Clear. Heart: Regular rhythm. Abdomen: Soft. Diffusely mildly tender, better than yesterday. No peripheral edema. LABS: White count 7.5, hemoglobin 11.7, platelets 171. Sodium 144, potassium 3.7, BUN 11, creatinine 0.2, glucose 119. Lipase is down to 506. Magnesium 1.5. IMPRESSION: 1. Acute pancreatitis. Clinically improved. Lipase is lower. Will start advancing her diet. She will probably be stable for discharge tomorrow. Will stop her IV fluids. She is maintaining adequate hydration now orally. 2. History of depression. Continue paroxetine 40 mg daily. 3. Hypertension. Blood pressure is well controlled off hydrochlorothiazide. I do not feel this needs to be restarted at this point. 4. History of asthma. Oxygen saturation is improving and she is doing well without supplemental oxygen. Continue bronchodilator and inhaled steroid. 5. Mistaken history of high alcohol intake. Her alcohol intake is actually fairly low and I have discontinued all of the measures directed towards excessive alcohol intake.
[2019-09-08] VITALS: BP 146/71
[2019-09-08] MEDS: IPRATROPIUM 0.5MG/ALBUTEROL 2.5MG INH SOL UD 3ML (DUONEB)(J7620) NEB SCH ×2 (02:00→08:39)
[2019-09-08 04:00] VITALS: BP 161/79
[2019-09-08 05:27] LABS: HEMATOCRIT 37.6 % (36.0-47.0); HEMOGLOBIN 12.1 g/dl (12.0-15.5); MEAN CORPUSCULAR HEMOGLOBIN 32.1 pg (27.0-33.0); MEAN CORPUSCULAR HGB CONC 32.2 g/dl (32.0-36.5); MEAN CORPUSCULAR VOLUME 99.7 fl (80.0-96.0); PLATELET COUNT, AUTOMATED 192 10^3/uL (150-450); RED BLOOD COUNT 3.77 10^6/uL (4.00-5.40); WHITE BLOOD COUNT 7.7 10^3/uL (4.0-10.0)
[2019-09-08 05:59] LABS: ALBUMIN 2.7 GM/DL (3.2-5.2); ALT/SGPT 24 U/L (12-78); BILIRUBIN,TOTAL 0.5 MG/DL (0.2-1.0); BLOOD UREA NITROGEN 8 MG/DL (7-18); CALCIUM LEVEL 7.9 MG/DL (8.8-10.2); CARBON DIOXIDE LEVEL 31 MEQ/L (21-32); CHLORIDE LEVEL 108 MEQ/L (98-107); CREATININE FOR GFR 0.57 MG/DL (0.55-1.30); GLOMERULAR FILTRATION RATE > 60.0 (>45); GLUCOSE, FASTING 115 MG/DL (70-100); LIPASE 259 U/L (73-393); MAGNESIUM LEVEL 1.6 MG/DL (1.8-2.4); POTASSIUM SERUM 3.8 MEQ/L (3.5-5.1); SODIUM LEVEL 142 MEQ/L (136-145); TOTAL PROTEIN 6.2 GM/DL (6.4-8.2)
[2019-09-08] MEDS ORDERED: MAG SULF 1GM/100ML (MAG RUN) 1 GM in IV 1 EA IV ONE (07:15)
[2019-09-08 08:00] VITALS: BP 162/92
[2019-09-08] MEDS ORDERED: TIOTROPIUM INHALER/CAPSULE (SPIRIVA) INH SCH (08:00)
[2019-09-08] MEDS: FLUTICASONE HFA 110 MCG 12 GM INHALER (FLOVENT) INH SCH (08:39)
[2019-09-08] MEDS ORDERED: ADVAIR HFA 230/21MCG INHALER INH SCH (09:00)
[2019-09-08] MEDS: HumaLOG INSULIN (NovoLOG) PER UNIT SC SCH ×2 (09:07→12:00)
[2019-09-08] MEDS: ENOXAPARIN 40 MG/0.4 ML SYRINGE (J1650) SC SCH (09:07)
[2019-09-08 09:08] VITALS: BP 162/92
[2019-09-08] MEDS: lisinopriL 10 MG TAB PO SCH (09:08)
[2019-09-08] MEDS: PARoxetine 20 MG TAB PO SCH (09:08)
[2019-09-08 09:53] LABS: CHOLESTEROL LEVEL 193 MG/DL (<200); CHOLESTEROL RISK RATIO 4.195 (<5); HDL CHOLESTEROL 46 MG/DL (>40); LDL CHOLESTEROL 127 MG/DL (<100); NON-HDL-C 147 MG/DL; TRIGLYCERIDES LEVEL 101 MG/DL (<150)
[2019-09-08] MEDS ORDERED: ALBUTEROL SULFATE 2.5 MG/0.5 ML INH NEB SOLN NEB PRN (10:00)
[2019-09-08] MEDS ORDERED: MAGNESIUM OXIDE 400 MG TAB (MAG-OX) PO ONE (10:30)
--- NOTE | 2019-09-08 14:11 | DS.PDOC ---
Discharge Summary General Date of Admission Sep 05, 2019 at 02:52 Date of Discharge 09/08/2019 Discharge Summary PROCEDURES PERFORMED DURING STAY: [None]. ADMITTING DIAGNOSES / DISCHARGE DIAGNOSES: Acute pancreatitis History of depression Hypertension History of asthma DVT prophylaxis COMPLICATIONS/CHIEF COMPLAINT: Abdominal pain HISTORY OF PRESENT ILLNESS / HOSPITAL COURSE: Patient is a 63 year old female with a PMHx of HTN, DLP, NIDDM2, COPD, Anxiety / Depression, who presented to the emergency room with complaints of abdominal pain associated with nausea and vomiting. In the emergency room, patient was found to have an elevated lactic acid and the CT scan that was completed with findings consistent with pancreatitis. Hospitalist services called for further evaluation and treatment. Patient remained inpatient for treatment of her pancreatitis. She was given aggressive IV fluid hydration and symptomatic control with morphine. Lab work was not significant for any elevated transaminases or bilirubin to suggest biliary etiology of pancreatitis a cardiac risk profile was checked to evaluate triglyceride levels and they were within range. Patient did attest to alcohol consumption prior to experiencing abdominal pain. Patient's diet was slowly advanced as tolerated. She's been advised to remain compliant with treatment planning medications and return to the emergency room if she experiences any problems. DISCHARGE MEDICATIONS: Please see below. ALLERGIES: Please see below. PHYSICAL EXAMINATION ON DISCHARGE: Vitals (See below) General: Lying in bed, comfortable, awake, alert and oriented 3 HEENT: NC, AT CVS: +S1S2 Lungs: Fair air entry b/l, no appreciable wheezing, rales or rhonchi Abdomen: Soft, ND, NT Extremities: - Edema, - Calf tenderness LABORATORY DATA: Please see below. IMAGING: CT abdomen / pelvis 09/04: Acute pancreatitis. CXR 09/04: No active disease. PROGNOSIS: Fair ACTIVITY: [As tolerated]. DISCHARGE PLAN: Follow-up with DISPOSITION: Home DISCHARGE CONDITION: [Stable]. TIME SPENT ON DISCHARGE: Time spent on discharge 37 minutes Vital Signs/I&Os Vital Signs Date Time Temp Pulse Resp B/P (MAP) Pulse Ox O2 Delivery O2 Flow Rate FiO2 09/08/19 12:00 Nasal Cannula 2.0 09/08/19 09:08 162/92 09/08/19 08:00 98.1 75 17 92 I&O- Last 24 Hours up to 6 AM 09/08/19 06:00 Intake Total 2356 ml Output Total 1750 ml Balance 606 ml Laboratory Data Labs 24H Laboratory Tests 2 3/9/20 16:57: Bedside Glucose (Misc Panel) 111 09/07/19 20:42: Bedside Glucose (Misc Panel) 102 09/08/19 05:10: Nucleated Red Blood Cells % (auto) 0.0, Anion Gap 3L, Glomerular Filtration Rate > 60.0, Calcium Level 7.9L, Magnesium Level 1.6L, Total Bilirubin 0.5, Aspartate Amino Transf (AST/SGOT) 15, Alanine Aminotransferase (ALT/SGPT) 24, Alkaline Phosphatase 55, Total Protein 6.2L, Albumin 2.7L, Albumin/Globulin Ratio 0.77L, Triglycerides Level 101, Total Cholesterol 193, LDL Cholesterol 127H, Non-HDL Cholesterol (LDL + VLDL) 147, Total HDL Cholesterol 46, Cholesterol/HDL Ratio 4.195, Lipase 259 09/08/19 12:19: Bedside Glucose (Misc Panel) 82 CBC/BMP Laboratory Tests 09/08/19 05:10 FSBS Laboratory Tests Test 09/07/19 16:57 09/07/19 20:42 09/08/19 12:19 Range/Units Bedside Glucose (Misc Panel) 111 102 82 80-115 MG/DL Discharge Medications Scheduled Aspirin (Aspirin EC) 81 Mg Tab, 81 MG PO DAILY, (Reported) Ergocalciferol (Vitamin D2) (Vitamin D2) 50,000 Units Cap, 50,000 UNITS PO 1XWK, (Reported) TAKES ON SATURDAY Fluticasone Propionate (Flovent Hfa) 110 Mcg/Act Aer.w.adap, 2 PUFF INH BID, (Reported) Hydrochlorothiazide (Hydrochlorothiazide) 25 Mg Tablet, 25 MG PO DAILY, (Reported) Lisinopril (Lisinopril) 30 Mg Tablet, 30 MG PO DAILY, (Reported) Metformin HCl (Metformin HCl) 500 Mg Tab, 1,000 MG PO BID, (Reported) Paroxetine HCl (Paroxetine) 40 Mg Tablet, 40 MG PO DAILY, (Reported) Scheduled PRN Albuterol Sulfate (Proair Hfa) 8.5 Gm Hfa.aer.ad, 2 PUFF INH Q4-6HP PRN for wheezing, (Reported) Allergies Coded Allergies: No Known Drug Allergies (Verified Allergy, Unknown, 09/05/19) LOTUS RIGGINS MD Sep 08, 2019 14:11
== END 2019-09-08 13:35 | disposition home or self-care (01) | DRG 282 ==
LOC: M ED 00:25 → M ED INP 02:52 → ENRESERV 03:40 → M PCU 04:47
PROVIDERS: ADMIT Internal Medicine; ATTEND Internal Medicine
DX: K85.90 Acute pancreatitis without necrosis or infection, unspecified (principal); I10 Essential (primary) hypertension; E11.9 Type 2 diabetes mellitus without complications; J44.9 Chronic obstructive pulmonary disease, unspecified; F41.8 Other specified anxiety disorders; E78.5 Hyperlipidemia, unspecified; Z90.79 Acquired absence of other genital organ(s); Z87.891 Personal history of nicotine dependence; R19.7 Diarrhea, unspecified; R11.10 Vomiting, unspecified; E66.01 Morbid (severe) obesity due to excess calories; Z68.41 Body mass index [BMI] 40.0-44.9, adult; Z79.82 Long term (current) use of aspirin; Z79.84 Long term (current) use of oral hypoglycemic drugs; Z79.899 Other long term (current) drug therapy

== ENCOUNTER → 2019-10-22 | Outpatient (CLI) | payer BC ==
[~2019-10-22] MED LIST changes: +HYDR25TAB PO; +LISI-672 PO; +PARO40TA3 PO; +PROAAER10 INH; +VITA50005 PO
[2019-10-22 13:29] LABS: BASO # 0.1 10^3/uL (0.0-0.2); EOS # 0.2 10^3/uL (0.0-0.5); EOS % 3.5 % (0.0-3.0); HEMATOCRIT 47.5 % (36.0-47.0); HEMOGLOBIN 15.7 g/dl (12.0-15.5); LYMPH # 2.4 10^3/uL (1.5-5.0); LYMPH % 40.1 % (24.0-44.0); MEAN CORPUSCULAR HGB CONC 33.1 g/dl (32.0-36.5); MEAN CORPUSCULAR VOLUME 96.7 fl (80.0-96.0); MONO # 0.5 10^3/uL (0.0-0.8); MONO % 7.4 % (0.0-5.0); NEUTROPHILS # 2.9 10^3/uL (1.5-8.5); NEUTROPHILS % 47.8 % (36.0-66.0); PLATELET COUNT, AUTOMATED 269 10^3/uL (150-450); RED BLOOD COUNT 4.91 10^6/uL (4.00-5.40); WHITE BLOOD COUNT 6.1 10^3/uL (4.0-10.0)
[2019-10-22 13:51] LABS: ALBUMIN 3.5 GM/DL (3.2-5.2); ALT/SGPT 24 U/L (12-78); BILIRUBIN,TOTAL 0.5 MG/DL (0.2-1.0); BLOOD UREA NITROGEN 17 MG/DL (7-18); CALCIUM LEVEL 9.1 MG/DL (8.8-10.2); CARBON DIOXIDE LEVEL 30 MEQ/L (21-32); CHLORIDE LEVEL 105 MEQ/L (98-107); GLOMERULAR FILTRATION RATE > 60.0 (>45); GLUCOSE, FASTING 121 MG/DL (70-100); POTASSIUM SERUM 4.1 MEQ/L (3.5-5.1); SODIUM LEVEL 141 MEQ/L (136-145); TOTAL 25(OH) VITAMIN D 45.3 NG/ML (30.0-100.0); TOTAL PROTEIN 6.8 GM/DL (6.4-8.2)
[2019-10-22 14:13] LABS: MALB URINE SIEMENS 29.5 MG/L
== END ==
LOC: M WUC 10:17
PROVIDERS: ATTEND Physician Assistant
DX: E55.9 Vitamin D deficiency, unspecified (principal); I10 Essential (primary) hypertension; E78.2 Mixed hyperlipidemia; E11.21 Type 2 diabetes mellitus with diabetic nephropathy

== ENCOUNTER → 2020-04-12 | Outpatient (REF) | payer BC ==
[~2020-04-12] MED LIST changes: -LISI-672 PO; +LISI30TA4 PO
[2020-04-12 13:34] LABS: ALBUMIN 3.4 GM/DL (3.2-5.2); ALT/SGPT 23 U/L (12-78); BILIRUBIN,TOTAL 0.5 MG/DL (0.2-1.0); BLOOD UREA NITROGEN 14 MG/DL (7-18); CALCIUM LEVEL 9.2 MG/DL (8.8-10.2); CARBON DIOXIDE LEVEL 33 MEQ/L (21-32); CHLORIDE LEVEL 108 MEQ/L (98-107); CREATININE FOR GFR 0.79 MG/DL (0.55-1.30); GLOMERULAR FILTRATION RATE > 60.0 (>45); GLUCOSE, FASTING 132 MG/DL (70-100); POTASSIUM SERUM 5.4 MEQ/L (3.5-5.1); SODIUM LEVEL 145 MEQ/L (136-145); THYROID STIMULATING HORMONE 0.756 uIU/ML (0.358-3.740); TOTAL PROTEIN 6.6 GM/DL (6.4-8.2)
[2020-04-12 13:48] LABS: HEMOGLOBIN A1c 6.5 %
== END ==
LOC: M SFHCADAM 10:52
PROVIDERS: ATTEND Physician Assistant Medical
DX: E78.2 Mixed hyperlipidemia (principal); E55.9 Vitamin D deficiency, unspecified; E66.01 Morbid (severe) obesity due to excess calories

== ENCOUNTER → 2020-04-26 | Outpatient (CLI) | payer BC ==
--- NOTE | 2020-04-27 09:22 | REP ---
INDICATION: PERSONAL HX OF NICOTINE DEPENDENCE COMPARISON: 03/31/2019 TECHNIQUE: Axial noncontrast images from the thoracic inlet to the upper abdomen using low-dose lung screening technique (LDCT). FINDINGS: Bilateral lung phan are relatively well aerated and symmetric. Minimal linear scarring at the lingula is suggested. No consolidation or suspicious nodule/mass lesion identified. No pleural effusion. No pneumothorax. Tracheobronchial tree is patent. IMPRESSION: Lung-RADS category 1. Management recommendations include annual low-dose CT surveillance. <Electronically signed by Tolu Guerrero > 04/27/20 0918
== END ==
LOC: M RAD 09:42
PROVIDERS: ATTEND Internal Medicine Pulmonary Disease
DX: Z87.891 Personal history of nicotine dependence (principal)

== ENCOUNTER → 2020-05-12 | Outpatient (CLI) | payer BC ==
--- NOTE | 2020-05-17 14:27 | SLEEPHOME ---
DATE: 05/12/2020 ORDERED BY: Noreen Richard MD Nocturnal polysomnography was performed for evaluation of sleep physiology. For testing, 8 hours of data was reviewed. There were 429.5 minutes of sleep identified. Sleep latency was mildly prolonged at 23.5 minutes. REM latency was quite prolonged at 423 minutes. Sleep architecture showed poor progression with one REM cycle late in the study. Overall sleep efficiency was 91.1%. The electrocardiogram showed a sinus rhythm with an average heart rate of 80 beats per minute and rate range 60-90. EEG showed coarsening in background consistent with medication effect. No focal events were identified. There were normal waveforms for wake and sleep. There were 50 respiratory events identified of 10 seconds in duration or greater for an apnea-hypopnea index of 7. The events were obstructive and not exclusive to any sleep stage nor body posture. Arousals from respiratory events occurred 2.5 times per hour and oxygen desaturations were seen below 90% with some limb activity. Limb movement arousal index was only 3.9 per hour. IMPRESSION: Obstructive sleep apnea syndrome (G47.33), apnea-hypopnea index 7. RECOMMENDATION: The patient should be encouraged to return to the sleep disorder center for pressure therapy. In the interim, alcohol and sedative avoidance should be practiced and caution exercised during the operation of motor vehicles. CORTNEYD
== END ==
LOC: M SLEEP 20:00
PROVIDERS: ATTEND Internal Medicine Pulmonary Disease
DX: G47.33 Obstructive sleep apnea (adult) (pediatric) (principal)

== ENCOUNTER → 2020-07-02 | Outpatient (CLI) | payer BC ==
[~2020-07-02] MED LIST changes: +ADVA230A INH; +ATOR40TA75 PO
== END ==
LOC: M LABSMTC 11:39
PROVIDERS: ATTEND Anesthesiology
DX: Z01.812 Encounter for preprocedural laboratory examination (principal); Z20.828 Contact with and (suspected) exposure to other viral communicable diseases

== ENCOUNTER 2020-07-06 07:44 | Day surgery (SDC) | payer BC ==
[~2020-07-06] VITALS: Ht 162.6 cm; Wt 109.3 kg
[~2020-07-06 07:44] MED LIST changes: +NS 1,000 ML IV ONE
[2020-07-06] MEDS ORDERED: propofoL 200 MG/20 ML VIAL As Ordered ONE ×2 (08:20→08:21)
[2020-07-06] MEDS ORDERED: LIDOCAINE 2% 100MG/5ML SDV (FOR ANES.) As Ordered ONE (08:21)
--- NOTE | 2020-07-06 09:11 | ROOR ---
Patient Name: Joyce Parrish Procedure Date: 07/06/2020 8:38 AM Date of : 1955 Age: 64 Room: [facility] Gender: Female Note Status: Finalized Procedure: Total Colonoscopy to Cecum + Hot Snare/Jumbo Polypectomy + Hemoclip Indications: Screening for colorectal malignant neoplasm Providers: Ryan Sanches MD Referring MD: JASON Bauer Requesting Provider: Medicines: Monitored Anesthesia Care Complications: No immediate complications. Procedure: Pre-Anesthesia Assessment: - The heart rate, respiratory rate, oxygen saturations, blood pressure, adequacy of pulmonary ventilation, and response to care were monitored throughout the procedure. The Colonoscope was introduced through the anus and advanced to the cecum, identified by appendiceal orifice and ileocecal valve. The colonoscopy was performed without difficulty. The patient tolerated the procedure well. The quality of the bowel preparation was excellent. Findings: The perianal and digital rectal examinations were normal. Non-bleeding internal hemorrhoids were found during retroflexion. The hemorrhoids were small and Grade I (internal hemorrhoids that do not prolapse). Multiple small and large-mouthed diverticula were found in the recto-sigmoid colon, sigmoid colon and descending colon. A medium polyp was found at 50 cm proximal to the anus. The polyp was pedunculated. The polyp was removed with a hot snare. Resection and retrieval were complete. To prevent bleeding after the polypectomy, one hemostatic clip was successfully placed (MR conditional). There was no bleeding at the end of the procedure. A small polyp was found in the transverse colon. The polyp was sessile. The polyp was removed with a jumbo cold forceps. Resection and retrieval were complete. The exam was otherwise without abnormality on direct and retroflexion views. Impression: - Non-bleeding internal hemorrhoids. - Diverticulosis in the recto-sigmoid colon, in the sigmoid colon and in the descending colon. - One medium polyp at 50 cm proximal to the anus, removed with a hot snare. Resected and retrieved. Clip (MR conditional) was placed. - One small polyp in the transverse colon, removed with a jumbo cold forceps. Resected and retrieved. - The examination was otherwise normal on direct and retroflexion views. - The exam was otherwise normal to the cecum. Recommendation: - Patient has a contact number available for emergencies. The signs and symptoms of potential delayed complications were discussed with the patient. Return to normal activities tomorrow. Written discharge instructions were provided to the patient. - High fiber diet. - Discharge patient to home. - Continue present medications. - Await pathology results. - Telephone GI clinic for pathology results in 1 week. - Repeat colonoscopy in 3 years for surveillance based on pathology results. - Return to referring physician. - The findings and recommendations were discussed with the patient. Procedure Code(s): --- Professional --- 76443, Colonoscopy, flexible; with removal of tumor(s), polyp(s), or other lesion(s) by snare technique 30476, 59, Colonoscopy, flexible; with biopsy, single or multiple Diagnosis Code(s): --- Professional --- Z12.11, Encounter for screening for malignant neoplasm of colon K64.0, First degree hemorrhoids K63.5, Polyp of colon K57.30, Diverticulosis of large intestine without perforation or abscess without bleeding CPT copyright 2019 [employer]. All rights reserved. The codes documented in this report are preliminary and upon studio hand review may be revised to meet current compliance requirements. Ryan Sanches MD Ryan Sanches MD 07/06/2020 9:10:32 AM Electronically signed by Ryan Sanches MD Number of Addenda: 0 Note Initiated On: 07/06/2020 8:38 AM Estimated Blood Loss: Estimated blood loss: none.
[2020-07-06 09:30] VITALS: BP 135/88
== END 2020-07-06 10:05 | disposition home or self-care (01) ==
LOC: M OPP 07:44
PROVIDERS: ATTEND Internal Medicine Gastroenterology
DX: Z12.11 Encounter for screening for malignant neoplasm of colon (principal); D12.3 Benign neoplasm of transverse colon; K64.0 First degree hemorrhoids; K57.30 Diverticulosis of large intestine without perforation or abscess without bleeding; I10 Essential (primary) hypertension; E11.9 Type 2 diabetes mellitus without complications; R12 Heartburn; F41.9 Anxiety disorder, unspecified; J44.9 Chronic obstructive pulmonary disease, unspecified; Z87.891 Personal history of nicotine dependence; Z79.82 Long term (current) use of aspirin; Z79.84 Long term (current) use of oral hypoglycemic drugs; Z79.899 Other long term (current) drug therapy

== ENCOUNTER → 2020-07-27 | Outpatient (CLI) | payer BC ==
[~2020-07-27] MED LIST changes: -NS 1,000 ML IV ONE
--- NOTE | 2020-07-28 16:01 | SLEEPCENT ---
DATE: 07/27/2020 ORDERED BY: Dr. Richard Nocturnal polysomnography was performed for the titration of pressure therapy in this patient with obstructive sleep apnea syndrome, apnea-hypopnea index of 7. For testing, a [employer] (formerly [employer]s Livia View full-face mask of medium size was used. There was 4 cm of water pressure applied to the circuit, and the lights were extinguished. There was 8 hours and 35 minutes of data reviewed. There was 430 minutes of sleep identified. Sleep latency was mildly prolonged at 34 minutes. REM latency was mildly prolonged at 136 minutes. Sleep architecture improved with optimal pressure titration, and there were three REM cycles appreciated. Overall sleep efficiency was 84.4%. The electrocardiogram showed a sinus rhythm with an average heart rate of 68 beats per minute. EEG showed normal waveforms for wake and sleep. Respiratory events were best palliated with CPAP at a pressure of +8. There were some mild hypopneic events and occasional central events seen, but minimal disruption of sleep was noted, and there was no significant oxygen desaturation surrounding this. Remaining measures of sleep physiology were reasonably normal. There was some limb activity, but limb movement arousal index was only 5.2. IMPRESSION: Obstructive sleep apnea syndrome (G47.33). RECOMMENDATION: Nightly use of pressure therapy, 8 cm of water.
== END ==
LOC: M SLEEP 20:00
PROVIDERS: ATTEND Internal Medicine Pulmonary Disease
DX: G47.33 Obstructive sleep apnea (adult) (pediatric) (principal)

== ENCOUNTER → 2020-09-27 | Outpatient (REF) | payer BC ==
[~2020-09-27] MED LIST changes: +HYDR-3490 PO; -HYDR25TAB PO
== END ==
LOC: M SFHCWAGY 13:47
PROVIDERS: ATTEND Nurse Practitioner Women's Health
DX: Z12.4 Encounter for screening for malignant neoplasm of cervix (principal)

== ENCOUNTER → 2020-09-27 | Outpatient (CLI) | payer BC ==
--- NOTE | 2020-09-28 17:14 | REPMRS ---
Patient History The patient states she had a clinical breast exam in August 2020. Family history of ovarian cancer at age 50 or over in maternal aunt, ovarian cancer at age 50 or over in paternal cousin. No Hormone Replacement Therapy 3D TOMOSYNTHESIS WAS PERFORMED. [facility] lifetime risk for breast cancer is 5.3%. Volpara breast density b. Digital Woman Screen Mammo: September 27, 2020 - Exam #: [id number] Bilateral CC and MLO view(s) were taken. Technologist: Ernestine Gaona, Technologist Prior study comparison: December 16, 2018, bilateral digital woman screen mammo performed at [facility]. December 10, 2017, bilateral digital woman screen mammo performed at [facility]. FINDINGS: There are scattered fibroglandular densities. There has been no change in the appearance of the mammogram from the prior studies. There is a mild amount of residual fibroglandular tissue which is fairly symmetric. There is no interval development of dominant mass, architectural distortion, or clustered microcalcification suggestive of malignancy. Assessment: BI-RADS/ACR category 1 mammogram. Negative Mammogram. Recommendation Routine screening mammogram in 1 year (for women over age 40). This mammogram was interpreted with the aid of an FDA-approved computer-aided dectection system. Electronically Signed By: Manav Sharif MD 09/28/20 [id number]
== END ==
LOC: M WHC 10:46
PROVIDERS: ATTEND Nurse Practitioner Women's Health
DX: Z12.31 Encounter for screening mammogram for malignant neoplasm of breast (principal)

== ENCOUNTER → 2020-10-18 | Outpatient (REF) | payer BC ==
[2020-10-18 13:31] LABS: BASO # 0.1 10^3/uL (0.0-0.2); EOS # 0.3 10^3/uL (0.0-0.5); EOS % 3.7 % (0.0-3.0); HEMATOCRIT 46.3 % (36.0-47.0); HEMOGLOBIN 15.3 g/dl (12.0-15.5); LYMPH # 2.3 10^3/uL (1.5-5.0); LYMPH % 32.1 % (24.0-44.0); MEAN CORPUSCULAR HEMOGLOBIN 32.6 pg (27.0-33.0); MEAN CORPUSCULAR VOLUME 98.5 fl (80.0-96.0); MONO # 0.6 10^3/uL (0.0-0.8); MONO % 8.1 % (2.0-8.0); NEUTROPHILS # 3.9 10^3/uL (1.5-8.5); NEUTROPHILS % 54.8 % (36.0-66.0); PLATELET COUNT, AUTOMATED 263 10^3/uL (150-450); WHITE BLOOD COUNT 7.1 10^3/uL (4.0-10.0)
[2020-10-18 14:10] LABS: MALB URINE SIEMENS 34.3 MG/L; MAU/CREAT RATIO 23.1 MCG/MG (0.0-30.0)
[2020-10-18 14:12] LABS: ALBUMIN 3.5 GM/DL (3.2-5.2); ALT/SGPT 23 U/L (12-78); BILIRUBIN,TOTAL 0.6 MG/DL (0.2-1.0); BLOOD UREA NITROGEN 18 MG/DL (7-18); CARBON DIOXIDE LEVEL 30 MEQ/L (21-32); CHLORIDE LEVEL 105 MEQ/L (98-107); CHOLESTEROL LEVEL 181 MG/DL (<200); CHOLESTEROL RISK RATIO 3.175 (<5); CREATININE FOR GFR 0.85 MG/DL (0.55-1.30); GLOMERULAR FILTRATION RATE > 60.0 (>45); GLUCOSE, FASTING 131 MG/DL (70-100); HDL CHOLESTEROL 57 MG/DL (>40); LDL CHOLESTEROL 103 MG/DL (<100); NON-HDL-C 124 MG/DL; POTASSIUM SERUM 4.3 MEQ/L (3.5-5.1); SODIUM LEVEL 142 MEQ/L (136-145); TOTAL 25(OH) VITAMIN D 35.3 NG/ML (30.0-100.0); TOTAL PROTEIN 6.7 GM/DL (6.4-8.2); TRIGLYCERIDES LEVEL 104 MG/DL (<150)
== END ==
LOC: M SFHCADAM 11:08
PROVIDERS: ATTEND Physician Assistant Medical
DX: E78.2 Mixed hyperlipidemia (principal); E55.9 Vitamin D deficiency, unspecified; E66.01 Morbid (severe) obesity due to excess calories; I10 Essential (primary) hypertension; E11.21 Type 2 diabetes mellitus with diabetic nephropathy; F41.8 Other specified anxiety disorders; F43.23 Adjustment disorder with mixed anxiety and depressed mood; J44.9 Chronic obstructive pulmonary disease, unspecified; I87.2 Venous insufficiency (chronic) (peripheral)

== ENCOUNTER → 2021-04-10 | Outpatient (REF) | payer BC ==
[~2021-04-10] MED LIST changes: +ERGO500029 PO; -VITA50005 PO
[2021-04-10 14:16] LABS: ALBUMIN 3.4 GM/DL (3.2-5.2); ALT/SGPT 23 U/L (12-78); BILIRUBIN,TOTAL 0.5 MG/DL (0.2-1.0); BLOOD UREA NITROGEN 15 MG/DL (7-18); CARBON DIOXIDE LEVEL 34 MEQ/L (21-32); CHLORIDE LEVEL 107 MEQ/L (98-107); CHOLESTEROL LEVEL 197 MG/DL (<200); CHOLESTEROL RISK RATIO 3.396 (<5); CREATININE FOR GFR 0.72 MG/DL (0.55-1.30); FREE T4 0.98 NG/DL (0.76-1.46); GLOMERULAR FILTRATION RATE > 60.0 (>45); GLUCOSE, FASTING 131 MG/DL (70-100); HDL CHOLESTEROL 58 MG/DL (>40); LDL CHOLESTEROL 117 MG/DL (<100); NON-HDL-C 139 MG/DL; POTASSIUM SERUM 4.7 MEQ/L (3.5-5.1); SODIUM LEVEL 143 MEQ/L (136-145); THYROID STIMULATING HORMONE 0.956 uIU/ML (0.358-3.740); TOTAL 25(OH) VITAMIN D 36.9 NG/ML (30.0-100.0); TOTAL PROTEIN 6.6 GM/DL (6.4-8.2); TRIGLYCERIDES LEVEL 110 MG/DL (<150)
[2021-04-10 15:37] LABS: HEMOGLOBIN A1c 6.7 %
== END ==
LOC: M SFHCADAM 09:59
PROVIDERS: ATTEND Physician Assistant Medical
DX: I10 Essential (primary) hypertension (principal); E78.2 Mixed hyperlipidemia; E11.21 Type 2 diabetes mellitus with diabetic nephropathy; F41.8 Other specified anxiety disorders; E55.9 Vitamin D deficiency, unspecified; F43.23 Adjustment disorder with mixed anxiety and depressed mood; E66.01 Morbid (severe) obesity due to excess calories; J44.9 Chronic obstructive pulmonary disease, unspecified; I87.2 Venous insufficiency (chronic) (peripheral)

== ENCOUNTER → 2021-05-09 | Outpatient (CLI) | payer BC ==
--- NOTE | 2021-05-09 17:03 | REP ---
INDICATION: SMOKER. COMPARISON: Multiple the latest 04/26/2020 TECHNIQUE: Axial noncontrast images from the thoracic inlet to the upper abdomen using low-dose lung screening technique (LDCT). As per the protocol only lung window images were sent to the read station for interpretation. FINDINGS: No new abnormal nodules, masses, or opacities have developed. Grossly, the mediastinum and pulmonary pardeep are stable. Grossly, the imaged upper abdomen and imaged osseous structures are stable. IMPRESSION: Stable lung rads category [address] low-dose [address] CT of the lungs. <Electronically signed by Wei Rosario > 05/09/21 [id number]
== END ==
LOC: M RAD 15:37
PROVIDERS: ATTEND Internal Medicine Pulmonary Disease
DX: Z87.891 Personal history of nicotine dependence (principal)

== ENCOUNTER → 2021-10-10 | Outpatient (REF) | payer BC ==
[~2021-10-10] MED LIST changes: -LISI20TA20 PO; +LISI20TA37 PO
[2021-10-10 13:56] LABS: BASO # 0.1 10^3/uL (0.0-0.2); BASO % 0.9 % (0.0-1.0); EOS # 0.2 10^3/uL (0.0-0.5); EOS % 3.3 % (0.0-3.0); HEMATOCRIT 44.9 % (36.0-47.0); HEMOGLOBIN 14.8 g/dl (12.0-15.5); LYMPH # 1.8 10^3/uL (1.5-5.0); LYMPH % 31.6 % (24.0-44.0); MEAN CORPUSCULAR HEMOGLOBIN 32.5 pg (27.0-33.0); MEAN CORPUSCULAR VOLUME 98.7 fl (80.0-96.0); MONO # 0.5 10^3/uL (0.0-0.8); MONO % 8.6 % (2.0-8.0); NEUTROPHILS # 3.2 10^3/uL (1.5-8.5); NEUTROPHILS % 55.3 % (36.0-66.0); PLATELET COUNT, AUTOMATED 214 10^3/uL (150-450); RED BLOOD COUNT 4.55 10^6/uL (4.00-5.40); WHITE BLOOD COUNT 5.8 10^3/uL (4.0-10.0)
[2021-10-10 14:42] LABS: MAU/CREAT RATIO 24.7 MCG/MG (0.0-30.0)
[2021-10-10 17:51] LABS: ALBUMIN 3.5 GM/DL (3.2-5.2); ALT/SGPT 27 U/L (12-78); BILIRUBIN,TOTAL 0.5 MG/DL (0.2-1.0); BLOOD UREA NITROGEN 24 MG/DL (7-18); CALCIUM LEVEL 8.9 MG/DL (8.8-10.2); CARBON DIOXIDE LEVEL 28 MEQ/L (21-32); CHLORIDE LEVEL 105 MEQ/L (98-107); CHOLESTEROL LEVEL 203 MG/DL (<200); CHOLESTEROL RISK RATIO 3.625 (<5); CREATININE FOR GFR 0.89 MG/DL (0.55-1.30); GLOMERULAR FILTRATION RATE > 60.0 (>45); GLUCOSE, FASTING 138 MG/DL (70-100); HDL CHOLESTEROL 56 MG/DL (>40); LDL CHOLESTEROL 127 MG/DL (<100); NON-HDL-C 147 MG/DL; POTASSIUM SERUM 3.9 MEQ/L (3.5-5.1); SODIUM LEVEL 142 MEQ/L (136-145); TOTAL PROTEIN 6.6 GM/DL (6.4-8.2); TRIGLYCERIDES LEVEL 99 MG/DL (<150)
[2021-10-10 18:58] LABS: HEMOGLOBIN A1c 6.9 %
== END ==
LOC: M SFHCADAM 10:57
PROVIDERS: ATTEND Physician Assistant Medical
DX: E11.21 Type 2 diabetes mellitus with diabetic nephropathy (principal); E55.9 Vitamin D deficiency, unspecified; E66.01 Morbid (severe) obesity due to excess calories

== ENCOUNTER → 2021-11-20 | Outpatient (CLI) | payer MEDICARE | LOC: M WHC 09:50 | PROVIDERS: ATTEND Obstetrics & Gynecology | DX: Z12.31 Encounter for screening mammogram for malignant neoplasm of breast (principal) ==

== ENCOUNTER → 2021-11-20 | Outpatient (REF) | payer BC | LOC: M PLALAB 13:19 | PROVIDERS: ATTEND Obstetrics & Gynecology | DX: Z12.4 Encounter for screening for malignant neoplasm of cervix (principal) ==

== ENCOUNTER 2021-12-30 11:01 | Emergency (ER) | payer BC, MEDICARE ==
[~2021-12-30] VITALS: Ht 160 cm; Wt 104.5 kg
[2021-12-30] MEDS ORDERED: methylPREDNISolone 125MG 2ML VIAL IV ONE (11:15)
[2021-12-30] MEDS ORDERED: IPRATROPIUM 0.5MG/ALBUTEROL 2.5MG INH SOL UD 3ML (DUONEB) As Ordered ONE (11:25)
[2021-12-30 11:47] LABS: VENOUS BASE EXCESS -1.8 (-2.0-2.0); VENOUS O2 SATURATION 72.1 % (60.0-80.0); VENOUS PARTIAL PRESSURE CO2 55.6 mmHg (38.0-50.0); VENOUS PARTIAL PRESSURE O2 38.5 mmHg (30.0-50.0); VENOUS PH 7.287 UNITS (7.330-7.430); VENOUS STANDARD HCO3 22.3 MEQ/L; VENOUS TOTAL CO2 27.7 MEQ/L (24.0-28.0)
[2021-12-30 11:54] LABS: BASO # 0.1 10^3/uL (0.0-0.2); BASO % 0.9 % (0.0-1.0); EOS # 0.3 10^3/uL (0.0-0.5); EOS % 4.4 % (0.0-3.0); HEMATOCRIT 45.6 % (36.0-47.0); HEMOGLOBIN 14.9 g/dl (12.0-15.5); LYMPH # 1.8 10^3/uL (1.5-5.0); LYMPH % 25.5 % (24.0-44.0); MEAN CORPUSCULAR HEMOGLOBIN 32.5 pg (27.0-33.0); MEAN CORPUSCULAR HGB CONC 32.7 g/dl (32.0-36.5); MEAN CORPUSCULAR VOLUME 99.3 fl (80.0-96.0); MONO # 0.5 10^3/uL (0.0-0.8); MONO % 7.6 % (2.0-8.0); NEUTROPHILS # 4.3 10^3/uL (1.5-8.5); NEUTROPHILS % 61.2 % (36.0-66.0); PLATELET COUNT, AUTOMATED 221 10^3/uL (150-450); RED BLOOD COUNT 4.59 10^6/uL (4.00-5.40)
[2021-12-30 12:24] LABS: ALBUMIN 3.4 GM/DL (3.2-5.2); ALT/SGPT 23 U/L (12-78); BILIRUBIN,DIRECT 0.1 MG/DL (0.0-0.2); BILIRUBIN,TOTAL 0.3 MG/DL (0.2-1.0); BLOOD UREA NITROGEN 16 MG/DL (7-18); CALCIUM LEVEL 8.8 MG/DL (8.8-10.2); CARBON DIOXIDE LEVEL 31 MEQ/L (21-32); CHLORIDE LEVEL 110 MEQ/L (98-107); CREATININE FOR GFR 0.76 MG/DL (0.55-1.30); GLOMERULAR FILTRATION RATE > 60.0 (>45); GLUCOSE, FASTING 144 MG/DL (70-100); POTASSIUM SERUM 4.2 MEQ/L (3.5-5.1); SODIUM LEVEL 144 MEQ/L (136-145); THYROID STIMULATING HORMONE 0.891 uIU/ML (0.358-3.740); THYROXINE (T4) 6.9 UG/DL (4.5-12.0); TOTAL PROTEIN 6.3 GM/DL (6.4-8.2)
[2021-12-30] MEDS ORDERED: ISOVUE-370 76% 100ML VIAL As Ordered ONE (12:41)
[2021-12-30] MEDS ORDERED: PRED20TA PO (13:23)
[2021-12-30] MEDS ORDERED: NS 500 ML IV ONE (13:25)
[2021-12-30] MEDS ORDERED: IBUPROFEN 400MG TAB PO ONE (13:35)
[2021-12-30 15:10] VITALS: O2SAT 89
[2021-12-30 15:15] VITALS: BP 143/67
== END 2021-12-30 15:25 | disposition home or self-care (01) ==
LOC: M ED 11:01
DX: J44.1 Chronic obstructive pulmonary disease with (acute) exacerbation (principal); R94.31 Abnormal electrocardiogram [ECG] [EKG]; E11.9 Type 2 diabetes mellitus without complications; I10 Essential (primary) hypertension; E78.5 Hyperlipidemia, unspecified; F41.9 Anxiety disorder, unspecified; F32.A Depression, unspecified; Z79.51 Long term (current) use of inhaled steroids; Z79.811 Long term (current) use of aromatase inhibitors; Z79.899 Other long term (current) drug therapy
CPT/HCPCS: 36415; 71045; 71275; 80048; 80076; 82803; 83605; 84436; 84443; 84484; 85025; 87040; 87486; 87581; 87633; 87798; 93005; 93041; 94760; 96361; 96374; 99285; J2930; Q9967

== ENCOUNTER → 2022-04-05 | Outpatient (REF) | payer BC ==
[~2022-04-05] MED LIST changes: +PRED20TA PO
[2022-04-05 13:34] LABS: HEMOGLOBIN A1c 7.3 %
[2022-04-05 13:54] LABS: ALBUMIN 3.6 GM/DL (3.2-5.2); ALT/SGPT 23 U/L (12-78); BILIRUBIN,TOTAL 0.6 MG/DL (0.2-1.0); BLOOD UREA NITROGEN 19 MG/DL (7-18); CALCIUM LEVEL 9.9 MG/DL (8.8-10.2); CARBON DIOXIDE LEVEL 33 MEQ/L (21-32); CHLORIDE LEVEL 103 MEQ/L (98-107); CHOLESTEROL LEVEL 222 MG/DL (<200); CHOLESTEROL RISK RATIO 3.639 (<5); CREATININE FOR GFR 0.85 MG/DL (0.55-1.30); GLOMERULAR FILTRATION RATE > 60.0 (>45); GLUCOSE, FASTING 160 MG/DL (70-100); HDL CHOLESTEROL 61 MG/DL (>40); LDL CHOLESTEROL 134 MG/DL (<100); NON-HDL-C 161 MG/DL; POTASSIUM SERUM 4.7 MEQ/L (3.5-5.1); SODIUM LEVEL 141 MEQ/L (136-145); TRIGLYCERIDES LEVEL 135 MG/DL (<150)
== END ==
LOC: M SFHCADAM 10:02
PROVIDERS: ATTEND Physician Assistant Medical
DX: E11.21 Type 2 diabetes mellitus with diabetic nephropathy (principal); E55.9 Vitamin D deficiency, unspecified

== ENCOUNTER → 2022-10-15 | Outpatient (REF) | payer BC, MEDICARE ==
[~2022-10-15] MED LIST changes: -PAXI20TA29 PO; +PAXI20TA30 PO
[2022-10-15 17:06] LABS: BASO # 0.1 10^3/uL (0.0-0.2); BASO % 0.9 % (0.0-1.0); EOS # 0.5 10^3/uL (0.0-0.5); EOS % 5.5 % (0.0-3.0); HEMATOCRIT 42.7 % (36.0-47.0); HEMOGLOBIN 13.8 g/dl (12.0-15.5); LYMPH % 22.9 % (24.0-44.0); MEAN CORPUSCULAR HEMOGLOBIN 32.2 pg (27.0-33.0); MEAN CORPUSCULAR HGB CONC 32.3 g/dl (32.0-36.5); MEAN CORPUSCULAR VOLUME 99.5 fl (80.0-96.0); MONO # 0.6 10^3/uL (0.0-0.8); NEUTROPHILS # 5.5 10^3/uL (1.5-8.5); NEUTROPHILS % 63.4 % (36.0-66.0); PLATELET COUNT, AUTOMATED 238 10^3/uL (150-450); RED BLOOD COUNT 4.29 10^6/uL (4.00-5.40); WHITE BLOOD COUNT 8.7 10^3/uL (4.0-10.0)
[2022-10-15 17:34] LABS: CREATININE, URINE 216.5 MG/DL
[2022-10-15 17:35] LABS: TOTAL 25(OH) VITAMIN D 28.5 NG/ML (20.0-100.0)
[2022-10-15 17:36] LABS: ALBUMIN 3.4 G/DL (3.2-5.2); ALKALINE PHOSPHATASE 67 U/L (46-116); ALT/SGPT 30 U/L (7.0-40); AST/SGOT 23 U/L (<34); BILIRUBIN,TOTAL 0.4 MG/DL (0.3-1.2); BLOOD UREA NITROGEN 21 MG/DL (9-23); CALCIUM LEVEL 8.8 MG/DL (8.3-10.6); CARBON DIOXIDE LEVEL 33 MMOL/L (20-31); CHLORIDE LEVEL 103 MMOL/L (98-107); CHOLESTEROL LEVEL 191 MG/DL (<200); CHOLESTEROL RISK RATIO 3.36 (<5); GLOMERULAR FILTRATION RATE > 60.0 (>45); GLUCOSE, FASTING 159 MG/DL (74-106); HDL CHOLESTEROL 56.7 MG/DL (>40); LDL CHOLESTEROL 104.9 MG/DL (<100); NON-HDL-C 134.3 MG/DL; POTASSIUM SERUM 4.2 MMOL/L (3.5-5.1); SODIUM LEVEL 142 MMOL/L (136-145); TOTAL PROTEIN 6.4 G/DL (5.7-8.2); TRIGLYCERIDES LEVEL 147 MG/DL (<150)
[2022-10-15 17:56] LABS: THYROID STIMULATING HORMONE 1.069 uIU/ML (0.55-4.78)
[2022-10-15 18:03] LABS: HEMOGLOBIN A1c 7.7 % (4.0-6.0)
== END ==
LOC: M SFHCADAM 14:43
PROVIDERS: ATTEND Physician Assistant Medical
DX: E11.21 Type 2 diabetes mellitus with diabetic nephropathy (principal); E78.2 Mixed hyperlipidemia; E55.9 Vitamin D deficiency, unspecified; E66.01 Morbid (severe) obesity due to excess calories

== ENCOUNTER 2022-11-09 15:34 | Inpatient (IN) | payer MEDICARE ==
[~2022-11-09] VITALS: Ht 162.6 cm; Wt 115.2 kg
[2022-11-09] MEDS ORDERED: BENZONATATE 100MG CAPSULE PO ONE (16:35)
[2022-11-09 17:14] LABS: VENOUS BASE EXCESS 4.4 (-2.0-2.0); VENOUS HCO3 31.5 MMOL/L (23.0-27.0); VENOUS O2 SATURATION 80.2 % (60.0-80.0); VENOUS PARTIAL PRESSURE CO2 56.9 mmHg (38.0-50.0); VENOUS PARTIAL PRESSURE O2 47.1 mmHg (30.0-50.0); VENOUS PH 7.361 UNITS (7.330-7.430); VENOUS STANDARD HCO3 27.9 MMOL/L; VENOUS TOTAL CO2 33.2 MMOL/L (24.0-28.0)
[2022-11-09 17:21] LABS: BASO # 0.1 10^3/uL (0.0-0.2); BASO % 0.4 % (0.0-1.0); EOS % 0.2 % (0.0-3.0); HEMATOCRIT 42.7 % (36.0-47.0); HEMOGLOBIN 13.8 g/dl (12.0-15.5); LYMPH # 1.2 10^3/uL (1.5-5.0); LYMPH % 7.1 % (24.0-44.0); MEAN CORPUSCULAR HGB CONC 32.3 g/dl (32.0-36.5); MEAN CORPUSCULAR VOLUME 99.1 fl (80.0-96.0); MONO # 1.5 10^3/uL (0.0-0.8); MONO % 9.1 % (2.0-8.0); NEUTROPHILS # 13.5 10^3/uL (1.5-8.5); NEUTROPHILS % 82.3 % (36.0-66.0); RED BLOOD COUNT 4.31 10^6/uL (4.00-5.40); WHITE BLOOD COUNT 16.4 10^3/uL (4.0-10.0)
[2022-11-09 17:23] LABS: RSV AMPLIFICATION NEGATIVE (NEGATIVE)
[2022-11-09 18:36] LABS: ERYTHROCYTE SEDIMENTATION RATE > 130 mm/hr (0-30)
[2022-11-09] MEDS ORDERED: cefTRIAXone SOD 1 GM in D5W MINI-BAG PLUS 50 ML IV ONE (19:10)
[2022-11-09] MEDS ORDERED: VITA100093 PO (20:24)
[2022-11-09] MEDS ORDERED: ALBU8.5H INH (20:24)
[2022-11-09] MEDS ORDERED: MED REC COMMENT (20:28)
[2022-11-09] MEDS ORDERED: HOME MED LIST COMPLETE! XX SCH (20:30)
[2022-11-09] MEDS ORDERED: ACETAMINOPHEN 500 MG TAB PO ONE (22:10)
[2022-11-09] MEDS: IPRATROPIUM 0.5MG/ALBUTEROL 2.5MG INH SOL UD 3ML (DUONEB) NEB PRN ×3 (22:27→22:38)
[2022-11-10] MEDS ORDERED: ACETAMINOPHEN TAB 650MG DOSE (2X325MG) PO PRN (00:05)
[2022-11-10] MEDS ORDERED: ALBUTEROL 90 MCG/ACT 8GM HFA INHALER INH PRN (00:05)
[2022-11-10] MEDS ORDERED: GLUCOSE 4GM CHEW TABLET PO PRN (00:20)
[2022-11-10] MEDS ORDERED: GLUCAGON INJ 1MG VIAL SC PRN (00:20)
[2022-11-10] MEDS ORDERED: DEXTROSE 50% 50ML SYRINGE IV PRN (00:20)
[2022-11-10 01:05] VITALS: BP 129/59
[2022-11-10] MEDS: IPRATROPIUM 0.5MG/ALBUTEROL 2.5MG INH SOL UD 3ML (DUONEB) INH SCH ×4 (01:59→19:25)
[2022-11-10 04:08] LABS: HEMOGLOBIN A1c 8.1 % (4.0-6.0)
[2022-11-10 05:44] VITALS: BP 129/58
[2022-11-10 06:07] LABS: BASO # 0.1 10^3/uL (0.0-0.2); BASO % 0.5 % (0.0-1.0); EOS % 0.3 % (0.0-3.0); HEMATOCRIT 38.6 % (36.0-47.0); HEMOGLOBIN 12.2 g/dl (12.0-15.5); LYMPH # 1.7 10^3/uL (1.5-5.0); LYMPH % 10.8 % (24.0-44.0); MEAN CORPUSCULAR HEMOGLOBIN 31.4 pg (27.0-33.0); MEAN CORPUSCULAR HGB CONC 31.6 g/dl (32.0-36.5); MEAN CORPUSCULAR VOLUME 99.5 fl (80.0-96.0); MONO # 1.5 10^3/uL (0.0-0.8); MONO % 9.5 % (2.0-8.0); NEUTROPHILS # 12.2 10^3/uL (1.5-8.5); NEUTROPHILS % 78.1 % (36.0-66.0); PLATELET COUNT, AUTOMATED 274 10^3/uL (150-450); RED BLOOD COUNT 3.88 10^6/uL (4.00-5.40); WHITE BLOOD COUNT 15.5 10^3/uL (4.0-10.0)
[2022-11-10 06:22] LABS: BLOOD UREA NITROGEN 26 MG/DL (9-23); CALCIUM LEVEL 7.3 MG/DL (8.3-10.6); CARBON DIOXIDE LEVEL 33 MMOL/L (20-31); CHLORIDE LEVEL 103 MMOL/L (98-107); CREATININE FOR GFR 0.78 MG/DL (0.55-1.30); GLOMERULAR FILTRATION RATE > 60.0 (>45); GLUCOSE, FASTING 235 MG/DL (74-106); POTASSIUM SERUM 3.5 MMOL/L (3.5-5.1); SODIUM LEVEL 140 MMOL/L (136-145)
[2022-11-10] MEDS: ADVAIR HFA 230/21MCG INHALER INH SCH ×2 (07:37→19:26)
[2022-11-10] MEDS: INSULIN LISPRO (NovoLOG) PER UNIT SC SCH ×4 (08:22→22:14)
[2022-11-10] MEDS: predniSONE 20 MG TAB PO SCH (08:23)
[2022-11-10] MEDS: ENOXAPARIN 40MG/0.4ML SYRINGE (J1650 PER 10MG) SC SCH (08:23)
[2022-11-10] MEDS: DOXYCYCLINE HYCLATE 100MG TABLET PO SCH ×2 (08:23→22:08)
[2022-11-10] MEDS ORDERED: metFORMIN (GLUCOPHAGE) 500MG TAB PO SCH (09:00)
[2022-11-10 10:00] VITALS: BP 142/78
[2022-11-10] MEDS ORDERED: ISOVUE-370 76% 100ML VIAL As Ordered ONE (10:42)
[2022-11-10 14:00] VITALS: BP 143/68
[2022-11-10] MEDS: cefTRIAXone SOD 1 GM in D5W MINI-BAG PLUS 50 ML IV SCH (17:00)
[2022-11-10 18:00] VITALS: BP 138/70
[2022-11-10] MEDS ORDERED: LEVEMIR (INSULIN DETEMIR) 1 UNITS/0.01ML SC SCH (21:00)
[2022-11-10] MEDS: ASPIRIN 81MG ENTERIC TABLET PO SCH (22:06)
[2022-11-10] MEDS: ATORVASTATIN 20 MG TAB PO SCH (22:07)
[2022-11-10] MEDS: VITAMIN D 1,000 INTERNATIONAL UNITS TABLET PO SCH (22:07)
[2022-11-10] MEDS: PARoxetine 20MG TABLET PO SCH (22:08)
[2022-11-10 22:15] VITALS: BP 140/70
[2022-11-11] VITALS (7 sets, daily range): BP systolic 104–165; BP diastolic 64–90
[2022-11-11] MEDS: IPRATROPIUM 0.5MG/ALBUTEROL 2.5MG INH SOL UD 3ML (DUONEB) INH SCH ×4 (01:18→19:40)
[2022-11-11 06:34] LABS: HEMATOCRIT 38.2 % (36.0-47.0); HEMOGLOBIN 12.3 g/dl (12.0-15.5); MEAN CORPUSCULAR HEMOGLOBIN 31.9 pg (27.0-33.0); MEAN CORPUSCULAR HGB CONC 32.2 g/dl (32.0-36.5); PLATELET COUNT, AUTOMATED 291 10^3/uL (150-450); RED BLOOD COUNT 3.86 10^6/uL (4.00-5.40); WHITE BLOOD COUNT 12.5 10^3/uL (4.0-10.0)
[2022-11-11 07:11] LABS: ATYPICAL LYMPH 1 % (0-5); EOSINOPHILS 1 % (0-3); LYMPHOCYTES 5 % (16-44); MONOCYTES 3 % (0-5); NEUTROPHILS 85 % (28-66); PLASMA CELL 2 % (0-0)
[2022-11-11 07:13] LABS: PLATELET CLUMPS SMALL AMT; PLATELET ESTIMATE NORMAL (NORMAL); POLYCHROMASIA 1+
[2022-11-11 07:15] LABS: BLOOD UREA NITROGEN 29 MG/DL (9-23); CALCIUM LEVEL 8.2 MG/DL (8.3-10.6); CARBON DIOXIDE LEVEL 32 MMOL/L (20-31); CHLORIDE LEVEL 102 MMOL/L (98-107); GLOMERULAR FILTRATION RATE > 60.0 (>45); GLUCOSE, FASTING 186 MG/DL (74-106); POTASSIUM SERUM 3.4 MMOL/L (3.5-5.1); SODIUM LEVEL 141 MMOL/L (136-145)
[2022-11-11] MEDS: ADVAIR HFA 230/21MCG INHALER INH SCH ×2 (07:28→19:40)
[2022-11-11] MEDS: INSULIN LISPRO (NovoLOG) PER UNIT SC SCH ×4 (07:59→21:33)
[2022-11-11] MEDS: predniSONE 20 MG TAB PO SCH (08:00)
[2022-11-11] MEDS: DOXYCYCLINE HYCLATE 100MG TABLET PO SCH ×2 (08:00→21:33)
[2022-11-11] MEDS: ENOXAPARIN 40MG/0.4ML SYRINGE (J1650 PER 10MG) SC SCH (08:01)
[2022-11-11] MEDS ORDERED: POTASSIUM CHLORIDE 10MEQ SR TABLET PO ONE (12:00)
[2022-11-11] MEDS: cefTRIAXone SOD 1 GM in D5W MINI-BAG PLUS 50 ML IV SCH (17:20)
[2022-11-11] MEDS ORDERED: LEVEMIR (INSULIN DETEMIR) 1 UNITS/0.01ML SC SCH (21:00)
[2022-11-11] MEDS: ASPIRIN 81MG ENTERIC TABLET PO SCH (21:33)
[2022-11-11] MEDS: PARoxetine 20MG TABLET PO SCH (21:33)
[2022-11-11] MEDS: VITAMIN D 1,000 INTERNATIONAL UNITS TABLET PO SCH (21:33)
[2022-11-11] MEDS: ATORVASTATIN 20 MG TAB PO SCH (21:34)
[2022-11-12 02:00] VITALS: BP 110/58
[2022-11-12] MEDS: IPRATROPIUM 0.5MG/ALBUTEROL 2.5MG INH SOL UD 3ML (DUONEB) INH SCH ×3 (02:15→13:23)
[2022-11-12 06:00] VITALS: BP 112/56
[2022-11-12 06:23] LABS: HEMATOCRIT 37.5 % (36.0-47.0); HEMOGLOBIN 12.1 g/dl (12.0-15.5); MEAN CORPUSCULAR HEMOGLOBIN 32.1 pg (27.0-33.0); MEAN CORPUSCULAR HGB CONC 32.3 g/dl (32.0-36.5); MEAN CORPUSCULAR VOLUME 99.5 fl (80.0-96.0); PLATELET COUNT, AUTOMATED 325 10^3/uL (150-450); RED BLOOD COUNT 3.77 10^6/uL (4.00-5.40); WHITE BLOOD COUNT 13.3 10^3/uL (4.0-10.0)
[2022-11-12 07:00] LABS: BLOOD UREA NITROGEN 24 MG/DL (9-23); CALCIUM LEVEL 8.7 MG/DL (8.3-10.6); CARBON DIOXIDE LEVEL 30 MMOL/L (20-31); CHLORIDE LEVEL 104 MMOL/L (98-107); CREATININE FOR GFR 0.67 MG/DL (0.55-1.30); GLOMERULAR FILTRATION RATE > 60.0 (>45); GLUCOSE, FASTING 184 MG/DL (74-106); POTASSIUM SERUM 3.6 MMOL/L (3.5-5.1); SODIUM LEVEL 141 MMOL/L (136-145)
[2022-11-12 07:21] LABS: LYMPHOCYTES 18 % (16-44); MONOCYTES 8 % (0-5); MYELOCYTES 2 % (0-0); NEUTROPHILS 72 % (28-66); PLATELET ESTIMATE NORMAL (NORMAL)
[2022-11-12 07:53] VITALS: O2SAT 94
[2022-11-12] MEDS: ADVAIR HFA 230/21MCG INHALER INH SCH (07:53)
[2022-11-12] MEDS: DOXYCYCLINE HYCLATE 100MG TABLET PO SCH (08:24)
[2022-11-12] MEDS: predniSONE 20 MG TAB PO SCH (08:25)
[2022-11-12] MEDS: INSULIN LISPRO (NovoLOG) PER UNIT SC SCH ×2 (08:25→13:16)
[2022-11-12] MEDS: ENOXAPARIN 40MG/0.4ML SYRINGE (J1650 PER 10MG) SC SCH (08:25)
[2022-11-12] MEDS ORDERED: PEN1MIS21 SC (12:00)
[2022-11-12] MEDS ORDERED: PRED20TA PO (12:00)
[2022-11-12] MEDS ORDERED: DOXY100T PO (12:00)
[2022-11-12] MEDS ORDERED: LANTINJ4 SC (12:00)
[2022-11-12] MEDS ORDERED: CEFP200T PO (12:02)
[2022-11-12 13:07] LABS: MYCOPLASMA PNEUMONIAE IgG 226 U/mL (0-99); MYCOPLASMA PNEUMONIAE IgM <770 U/mL (0-769)
[2022-11-13 15:10] LABS: BODY FLUID CULTURE Not indicated. (.); LEGIONELLA ANTIGEN URINE Negative (Negative); ORGANISM ID Not indicated. (.); SPECIMEN SOURCE Urine (.); URINE STREP PNEUMONIAE ANTIGEN Negative (Negative)
== END 2022-11-12 15:26 | disposition home or self-care (01) | DRG 194 ==
LOC: M ED 15:34 → M ED INP 11-10 00:02 → M MSPAV 11-10 01:05
PROVIDERS: ADMIT Internal Medicine; ATTEND Internal Medicine
DX: J18.9 Pneumonia, unspecified organism (principal); J44.0 Chronic obstructive pulmonary disease with (acute) lower respiratory infection; J96.11 Chronic respiratory failure with hypoxia; I10 Essential (primary) hypertension; E11.65 Type 2 diabetes mellitus with hyperglycemia; Z99.81 Dependence on supplemental oxygen; F41.9 Anxiety disorder, unspecified; F32.A Depression, unspecified; E78.5 Hyperlipidemia, unspecified; E55.9 Vitamin D deficiency, unspecified; R91.1 Solitary pulmonary nodule; Z79.4 Long term (current) use of insulin; Z79.899 Other long term (current) drug therapy; Z79.82 Long term (current) use of aspirin; R19.7 Diarrhea, unspecified

== ENCOUNTER 2023-01-16 15:48 | Emergency (ER) | payer BC, MEDICARE ==
[~2023-01-16] VITALS: Ht 162.6 cm; Wt 116.1 kg
[~2023-01-16 15:48] MED LIST changes: +ALBU8.5H INH; +CEFP200T PO; +DOXY100T PO; +FLUT12AE6 INH; +LANTINJ4 SC; +MED REC COMMENT; +PEN1MIS21 SC; +VITA100093 PO
[2023-01-16 15:49] VITALS: BP 133/74; TEMP 98.2; O2SAT 91
[2023-01-16 18:02] LABS: BASO # 0.1 10^3/uL (0.0-0.2); BASO % 0.7 % (0.0-1.0); EOS # 0.2 10^3/uL (0.0-0.5); EOS % 2.9 % (0.0-3.0); HEMATOCRIT 41.7 % (36.0-47.0); HEMOGLOBIN 13.7 g/dl (12.0-15.5); LYMPH % 24.5 % (24.0-44.0); MEAN CORPUSCULAR HEMOGLOBIN 31.8 pg (27.0-33.0); MEAN CORPUSCULAR HGB CONC 32.9 g/dl (32.0-36.5); MEAN CORPUSCULAR VOLUME 96.8 fl (80.0-96.0); MONO # 0.7 10^3/uL (0.0-0.8); MONO % 8.6 % (2.0-8.0); NEUTROPHILS # 5.1 10^3/uL (1.5-8.5); NEUTROPHILS % 63.1 % (36.0-66.0); PLATELET COUNT, AUTOMATED 216 10^3/uL (150-450); RED BLOOD COUNT 4.31 10^6/uL (4.00-5.40); WHITE BLOOD COUNT 8.1 10^3/uL (4.0-10.0)
[2023-01-16 18:10] LABS: ERYTHROCYTE SEDIMENTATION RATE 29 mm/hr (0-30)
[2023-01-16 18:29] LABS: CREATININE FOR GFR 1.18 MG/DL (0.55-1.30); GLOMERULAR FILTRATION RATE 48.8 (>45); POTASSIUM SERUM 3.7 MMOL/L (3.5-5.1)
[2023-01-16] MEDS ORDERED: NAPROXEN 250 MG TAB PO ONE (22:10)
[2023-01-16] MEDS ORDERED: LIDOCAINE 4% CREAM 5GM (LMX4) TOP ONE (22:10)
[2023-01-16] MEDS ORDERED: ANEC4CRE3 TOP (22:11)
[2023-01-16] MEDS ORDERED: OMEP-173 PO (22:11)
[2023-01-16] MEDS ORDERED: IBUP-1022 PO (22:11)
[2023-01-16] MEDS ORDERED: TRAM50TA2 PO (22:14)
[2023-01-16] MEDS ORDERED: IBUPROFEN 600MG TAB PO ONE (22:20)
[2023-01-16] MEDS ORDERED: traMADol 50 MG TAB PO ONE (22:20)
[2023-01-17] MEDS ORDERED: CEPH500C PO (01:35)
== END 2023-01-16 22:30 | disposition home or self-care (01) ==
LOC: M ED 15:48
DX: I82.811 Embolism and thrombosis of superficial veins of right lower extremity (principal); E11.9 Type 2 diabetes mellitus without complications; I10 Essential (primary) hypertension; E78.5 Hyperlipidemia, unspecified; J44.9 Chronic obstructive pulmonary disease, unspecified; K21.9 Gastro-esophageal reflux disease without esophagitis; R51.9 Headache, unspecified; F17.200 Nicotine dependence, unspecified, uncomplicated; Z79.52 Long term (current) use of systemic steroids; Z79.811 Long term (current) use of aromatase inhibitors; Z79.4 Long term (current) use of insulin; Z79.899 Other long term (current) drug therapy

== ENCOUNTER → 2023-02-12 | Outpatient (CLI) | payer MEDICARE ==
[~2023-02-12] MED LIST changes: +ANEC4CRE3 TOP; +CEPH500C PO; +IBUP-1022 PO; +OMEP-173 PO; +TRAM50TA2 PO
== END ==
LOC: M RAD 08:03
PROVIDERS: ATTEND Internal Medicine Pulmonary Disease
DX: R91.8 Other nonspecific abnormal finding of lung field (principal)

== ENCOUNTER → 2023-04-10 | Outpatient (REF) | payer BC, MEDICARE ==
[~2023-04-10] MED LIST changes: +PEN-308 SC; -PEN1MIS21 SC
[2023-04-10 13:27] LABS: ALBUMIN 3.4 G/DL (3.2-5.2); ALKALINE PHOSPHATASE 71 U/L (46-116); ALT/SGPT 23 U/L (7.0-40); AST/SGOT 14 U/L (<34); BILIRUBIN,TOTAL 0.3 MG/DL (0.3-1.2); BLOOD UREA NITROGEN 21 MG/DL (9-23); CALCIUM LEVEL 8.9 MG/DL (8.3-10.6); CARBON DIOXIDE LEVEL 31 MMOL/L (20-31); CHLORIDE LEVEL 105 MMOL/L (98-107); CREATININE FOR GFR 0.75 MG/DL (0.55-1.30); GLOMERULAR FILTRATION RATE > 60.0 (>45); GLUCOSE, FASTING 181 MG/DL (74-106); POTASSIUM SERUM 4.3 MMOL/L (3.5-5.1); SODIUM LEVEL 143 MMOL/L (136-145); TOTAL PROTEIN 6.5 G/DL (5.7-8.2)
[2023-04-10 13:43] LABS: HEMOGLOBIN A1c 7.2 % (4.0-6.0)
== END ==
LOC: M SFHCADAM 10:21
PROVIDERS: ATTEND Physician Assistant Medical
DX: E11.21 Type 2 diabetes mellitus with diabetic nephropathy (principal); E55.9 Vitamin D deficiency, unspecified

== ENCOUNTER → 2023-04-26 | Outpatient (REF) | payer BC, MEDICARE | LOC: M SFHCWAGY 10:00 | PROVIDERS: ATTEND Obstetrics & Gynecology | DX: Z12.4 Encounter for screening for malignant neoplasm of cervix (principal) | CPT/HCPCS: 87624; G0123 ==

== ENCOUNTER → 2023-04-26 | Outpatient (CLI) | payer MEDICARE | LOC: M WHC 08:21 | PROVIDERS: ATTEND Obstetrics & Gynecology | DX: Z12.31 Encounter for screening mammogram for malignant neoplasm of breast (principal) ==

== ENCOUNTER → 2023-10-11 | Outpatient (REF) | payer BC, MEDICARE ==
[~2023-10-11] MED LIST changes: +ANOR1AER; +ATOR80TA59 PO; +CEFD1CAP9 PO; +FLOM0.4C39 PO; +KETO10TAB PO; +MULTTAB61 PO; +PARO40TA2 PO; +TAMS1CAP17 PO
[2023-10-11 17:23] LABS: BASO # 0.1 10^3/uL (0.0-0.2); EOS # 0.2 10^3/uL (0.0-0.5); EOS % 3.1 % (0.0-3.0); HEMATOCRIT 45.9 % (36.0-47.0); HEMOGLOBIN 15.2 g/dl (12.0-15.5); LYMPH # 2.2 10^3/uL (1.5-5.0); LYMPH % 35.4 % (24.0-44.0); MEAN CORPUSCULAR HEMOGLOBIN 32.6 pg (27.0-33.0); MEAN CORPUSCULAR HGB CONC 33.1 g/dl (32.0-36.5); MEAN CORPUSCULAR VOLUME 98.5 fl (80.0-96.0); MONO # 0.6 10^3/uL (0.0-0.8); MONO % 9.4 % (2.0-8.0); NEUTROPHILS # 3.1 10^3/uL (1.5-8.5); NEUTROPHILS % 50.9 % (36.0-66.0); PLATELET COUNT, AUTOMATED 267 10^3/uL (150-450); RED BLOOD COUNT 4.66 10^6/uL (4.00-5.40); WHITE BLOOD COUNT 6.1 10^3/uL (4.0-10.0)
[2023-10-11 17:39] LABS: HEMOGLOBIN A1c 6.7 % (4.0-6.0)
[2023-10-11 17:55] LABS: ALBUMIN 3.3 G/DL (3.2-5.2); ALKALINE PHOSPHATASE 70 U/L (46-116); ALT/SGPT 19 U/L (7.0-40); AST/SGOT 17 U/L (<34); BILIRUBIN,TOTAL 0.6 MG/DL (0.3-1.2); BLOOD UREA NITROGEN 17 MG/DL (9-23); CALCIUM LEVEL 9.4 MG/DL (8.3-10.6); CARBON DIOXIDE LEVEL 31 MMOL/L (20-31); CHLORIDE LEVEL 106 MMOL/L (98-107); CHOLESTEROL LEVEL 198 MG/DL (<200); CHOLESTEROL RISK RATIO 4.24 (<5); CREATININE FOR GFR 0.86 MG/DL (0.55-1.30); GLOMERULAR FILTRATION RATE > 60.0 (>45); GLUCOSE, FASTING 137 MG/DL (74-106); HDL CHOLESTEROL 46.6 MG/DL (>40); LDL CHOLESTEROL 121.2 MG/DL (<100); NON-HDL-C 151.4 MG/DL; POTASSIUM SERUM 5.2 MMOL/L (3.5-5.1); SODIUM LEVEL 143 MMOL/L (136-145); TOTAL PROTEIN 6.4 G/DL (5.7-8.2); TRIGLYCERIDES LEVEL 151 MG/DL (<150)
[2023-10-11 17:57] LABS: THYROID STIMULATING HORMONE 1.635 uIU/ML (0.55-4.78); TOTAL 25(OH) VITAMIN D 41.4 NG/ML (20.0-100.0)
[2023-10-11 18:03] LABS: MAU/CREAT RATIO 39.1 MCG/MG (0.0-30.0)
== END ==
LOC: M SFHCADAM 11:39
PROVIDERS: ATTEND Physician Assistant Medical
DX: E11.21 Type 2 diabetes mellitus with diabetic nephropathy (principal); E78.2 Mixed hyperlipidemia; E55.9 Vitamin D deficiency, unspecified; E66.01 Morbid (severe) obesity due to excess calories

== ENCOUNTER 2023-10-22 13:08 | Emergency (ER) | payer BC, MEDICARE ==
[~2023-10-22] VITALS: Ht 162.6 cm; Wt 108.1 kg
[~2023-10-22 13:08] MED LIST changes: -ANOR1AER; -ATOR80TA59 PO; -CEFD1CAP9 PO; -FLOM0.4C39 PO; -KETO10TAB PO; -MULTTAB61 PO; -PARO40TA2 PO; -TAMS1CAP17 PO
[2023-10-22 17:19] LABS: BASO # 0.1 10^3/uL (0.0-0.2); BASO % 0.4 % (0.0-1.0); EOS % 0.1 % (0.0-3.0); HEMATOCRIT 47.8 % (36.0-47.0); MEAN CORPUSCULAR HEMOGLOBIN 32.7 pg (27.0-33.0); MEAN CORPUSCULAR HGB CONC 33.5 g/dl (32.0-36.5); MEAN CORPUSCULAR VOLUME 97.8 fl (80.0-96.0); MONO # 0.3 10^3/uL (0.0-0.8); MONO % 2.4 % (2.0-8.0); NEUTROPHILS # 10.5 10^3/uL (1.5-8.5); NEUTROPHILS % 88.8 % (36.0-66.0); PLATELET COUNT, AUTOMATED 258 10^3/uL (150-450); RED BLOOD COUNT 4.89 10^6/uL (4.00-5.40); WHITE BLOOD COUNT 11.8 10^3/uL (4.0-10.0)
[2023-10-22] MEDS: KETOROLAC 30 MG/ML 1ML VIAL IV ONE (18:14)
[2023-10-22] MEDS: NS 1,000 ML IV ONE (18:15)
[2023-10-22] MEDS ORDERED: KETO10TAB PO (21:22)
[2023-10-22] MEDS ORDERED: CEFD1CAP9 PO (21:22)
[2023-10-22] MEDS ORDERED: FLOM0.4C39 PO (21:22)
[2023-10-22 21:25] VITALS: BP 150/80; TEMP 98; O2SAT 95
== END 2023-10-22 21:33 | disposition home or self-care (01) ==
LOC: M ED 13:08
DX: N20.1 Calculus of ureter (principal); K21.9 Gastro-esophageal reflux disease without esophagitis; I10 Essential (primary) hypertension; E78.00 Pure hypercholesterolemia, unspecified; J44.9 Chronic obstructive pulmonary disease, unspecified; F41.9 Anxiety disorder, unspecified; Z87.891 Personal history of nicotine dependence; Z79.51 Long term (current) use of inhaled steroids; Z79.1 Long term (current) use of non-steroidal anti-inflammatories (NSAID); Z79.2 Long term (current) use of antibiotics; Z79.4 Long term (current) use of insulin; Z79.84 Long term (current) use of oral hypoglycemic drugs; Z79.52 Long term (current) use of systemic steroids; Z79.899 Other long term (current) drug therapy
CPT/HCPCS: 74176; 80047; 81001; 85025; 87086; 96361; 96374; 99284; J1885

== ENCOUNTER → 2023-11-14 | Outpatient (REF) | payer MEDICARE, BC ==
[~2023-11-14] MED LIST changes: +CEFD1CAP9 PO; +FLOM0.4C39 PO; +KETO10TAB PO
[2023-11-14 14:26] LABS: APPEARANCE, URINE CLEAR (CLEAR); BACTERIA, URINE AUTO NEGATIVE (NEGATIVE); BILIRUBIN, URINE AUTO NEGATIVE (NEGATIVE); BLOOD, URINE BLOOD NEGATIVE (NEGATIVE); COLOR, URINE STRAW (YELLOW); GLUCOSE, URINE (UA) AUTO NEGATIVE (NEGATIVE); KETONE, URINE AUTO NEGATIVE (NEGATIVE); LEUKOCYTE ESTERASE, URINE AUTO NEGATIVE (NEGATIVE); MUCUS, URINE SMALL (NEGATIVE); NITRITE, URINE AUTO NEGATIVE (NEGATIVE); PROTEIN, URINE AUTO NEGATIVE (NEGATIVE); RBC, URINE AUTO 0 /HPF (0-3); SPECIFIC GRAVITY URINE AUTO 1.012 (1.002-1.035); SQUAMOUS EPITHELIAL CELL UR AU 1 /HPF (0-6); UROBILINOGEN, URINE AUTO 0.2 mg/dL (0.0-2.0); WBC, URINE AUTO 1 /HPF (0-3)
== END ==
LOC: M SMT 12:44
PROVIDERS: ATTEND Nurse Practitioner Family
DX: N20.1 Calculus of ureter (principal)

== ENCOUNTER → 2023-12-10 | Outpatient (CLI) | payer BC, MEDICARE ==
[~2023-12-10] MED LIST changes: +ANOR1AER; +ATOR80TA59 PO; +MULTTAB61 PO; +PARO40TA2 PO; +TAMS1CAP17 PO
== END ==
LOC: M ADAMS 09:19
PROVIDERS: ATTEND Physician Assistant Medical
DX: Z01.818 Encounter for other preprocedural examination (principal); N20.1 Calculus of ureter

== ENCOUNTER → 2023-12-10 | Outpatient (REF) | payer BC, MEDICARE ==
[2023-12-10 13:45] LABS: APPEARANCE, URINE HAZY (CLEAR); BACTERIA, URINE AUTO NEGATIVE (NEGATIVE); BILIRUBIN, URINE AUTO NEGATIVE (NEGATIVE); BLOOD, URINE BLOOD NEGATIVE (NEGATIVE); COLOR, URINE YELLOW (YELLOW); GLUCOSE, URINE (UA) AUTO NEGATIVE (NEGATIVE); KETONE, URINE AUTO NEGATIVE (NEGATIVE); LEUKOCYTE ESTERASE, URINE AUTO TRACE (NEGATIVE); MUCUS, URINE SMALL (NEGATIVE); NITRITE, URINE AUTO NEGATIVE (NEGATIVE); PROTEIN, URINE AUTO NEGATIVE (NEGATIVE); RBC, URINE AUTO 0 /HPF (0-3); SPECIFIC GRAVITY URINE AUTO 1.014 (1.002-1.035); SQUAMOUS EPITHELIAL CELL UR AU 2 /HPF (0-6); UROBILINOGEN, URINE AUTO 0.2 mg/dL (0.0-2.0); WBC, URINE AUTO 2 /HPF (0-3)
[2023-12-10 15:36] LABS: BLOOD UREA NITROGEN 23 MG/DL (9-23); CALCIUM LEVEL 9.3 MG/DL (8.3-10.6); CARBON DIOXIDE LEVEL 28 MMOL/L (20-31); CHLORIDE LEVEL 105 MMOL/L (98-107); CREATININE FOR GFR 0.91 MG/DL (0.55-1.30); GLOMERULAR FILTRATION RATE > 60.0 (>45); GLUCOSE, FASTING 127 MG/DL (74-106); POTASSIUM SERUM 4.2 MMOL/L (3.5-5.1); SODIUM LEVEL 142 MMOL/L (136-145)
== END ==
LOC: M SFHCADAM 09:08
PROVIDERS: ATTEND Nurse Practitioner Family
DX: Z01.818 Encounter for other preprocedural examination (principal); N20.1 Calculus of ureter

== ENCOUNTER → 2023-12-13 | Outpatient (REF) | payer BC ==
[2023-12-13 13:51] LABS: HEMATOCRIT 38.1 % (36.0-47.0); HEMOGLOBIN 12.7 g/dl (12.0-15.5); MEAN CORPUSCULAR HEMOGLOBIN 32.4 pg (27.0-33.0); MEAN CORPUSCULAR HGB CONC 33.3 g/dl (32.0-36.5); MEAN CORPUSCULAR VOLUME 97.2 fl (80.0-96.0); PLATELET COUNT, AUTOMATED 226 10^3/uL (150-450); RED BLOOD COUNT 3.92 10^6/uL (4.00-5.40); WHITE BLOOD COUNT 7.5 10^3/uL (4.0-10.0)
== END ==
LOC: M LABWUC 13:11 → M LAB REF 13:11
PROVIDERS: ATTEND Nurse Practitioner Family
DX: Z01.818 Encounter for other preprocedural examination (principal)

== ENCOUNTER 2023-12-16 06:58 | Day surgery (SDC) | payer MEDICARE ==
[~2023-12-16] VITALS: Ht 162.6 cm; Wt 107.5 kg
[2023-12-16] MEDS ORDERED: LR 1,000 ML IV SCH ×2 (07:10→09:40)
[2023-12-16] MEDS ORDERED: fentaNYL 100 MCG/2 ML INJECTION As Ordered ONE (07:53)
[2023-12-16] MEDS ORDERED: LIDOCAINE 2% 100MG/5ML SDV (FOR ANES.) As Ordered ONE (07:53)
[2023-12-16] MEDS ORDERED: propofoL 200 MG/20 ML VIAL As Ordered ONE (07:53)
[2023-12-16] MEDS ORDERED: ONDANSETRON 4MG 2ML VIAL As Ordered ONE (07:53)
[2023-12-16] MEDS: ceFAZolin SOD 2 GM in IV 1 EA IV ONE (09:10)
[2023-12-16] MEDS ORDERED: KETOROLAC 60MG 2ML VIAL As Ordered ONE (09:12)
[2023-12-16] MEDS: ISOVUE-300 61% 100ML VIAL As Ordered ONE (09:30)
[2023-12-16] MEDS ORDERED: oxyCODONE 5MG TAB PO PRN (09:40)
[2023-12-16] MEDS ORDERED: fentaNYL 100 MCG/2 ML INJECTION IV PRN (09:40)
[2023-12-16] MEDS ORDERED: ONDANSETRON 4MG 2ML VIAL IV PRN (09:40)
[2023-12-16] MEDS ORDERED: PERCOCET 5MG/325MG TAB PO PRN (10:15)
[2023-12-16 10:23] VITALS: BP 150/63; TEMP 96.7; O2SAT 95
== END 2023-12-16 11:14 | disposition home or self-care (01) ==
LOC: M SDC 06:58
PROVIDERS: ATTEND Urology
DX: N20.1 Calculus of ureter (principal); I10 Essential (primary) hypertension; E78.5 Hyperlipidemia, unspecified; J44.9 Chronic obstructive pulmonary disease, unspecified; E11.9 Type 2 diabetes mellitus without complications; Z79.899 Other long term (current) drug therapy; Z79.82 Long term (current) use of aspirin; Z79.84 Long term (current) use of oral hypoglycemic drugs
CPT/HCPCS: 52005; 76000; C1769; J0690; J1885; J2405; J3010; Q9967

== ENCOUNTER → 2024-01-15 | Outpatient (CLI) | payer MEDICARE | LOC: M RAD 08:38 | PROVIDERS: ATTEND Physician Assistant | DX: R60.0 Localized edema (principal); Z86.79 Personal history of other diseases of the circulatory system ==

== ENCOUNTER → 2024-03-18 | Outpatient (CLI) | payer BC, MEDICARE | LOC: M RAD 11:59 | PROVIDERS: ATTEND Internal Medicine Pulmonary Disease | DX: Z12.2 Encounter for screening for malignant neoplasm of respiratory organs (principal); Z87.891 Personal history of nicotine dependence ==

== ENCOUNTER → 2024-04-08 | Outpatient (REF) | payer BC ==
[2024-04-08 18:20] LABS: ALBUMIN 3.4 G/DL (3.2-5.2); ALKALINE PHOSPHATASE 55 U/L (46-116); ALT/SGPT 18 U/L (7.0-40); AST/SGOT 14 U/L (<34); BILIRUBIN,TOTAL 0.5 MG/DL (0.3-1.2); BLOOD UREA NITROGEN 15 MG/DL (9-23); CALCIUM LEVEL 9.3 MG/DL (8.3-10.6); CARBON DIOXIDE LEVEL 30 MMOL/L (20-31); CHLORIDE LEVEL 108 MMOL/L (98-107); CHOLESTEROL LEVEL 192 MG/DL (<200); CHOLESTEROL RISK RATIO 4.23 (<5); CREATININE FOR GFR 0.81 MG/DL (0.55-1.30); GLOMERULAR FILTRATION RATE > 60.0 (>45); GLUCOSE, FASTING 113 MG/DL (74-106); HDL CHOLESTEROL 45.3 MG/DL (>40); LDL CHOLESTEROL 124.1 MG/DL (<100); NON-HDL-C 146.7 MG/DL; POTASSIUM SERUM 4.4 MMOL/L (3.5-5.1); SODIUM LEVEL 143 MMOL/L (136-145); TOTAL PROTEIN 6.3 G/DL (5.7-8.2); TRIGLYCERIDES LEVEL 113 MG/DL (<150)
[2024-04-08 18:31] LABS: HEMOGLOBIN A1c 6.4 % (4.0-6.0)
== END ==
LOC: M SFHCADAM 14:12
PROVIDERS: ATTEND Physician Assistant Medical
DX: E11.21 Type 2 diabetes mellitus with diabetic nephropathy (principal); E78.2 Mixed hyperlipidemia

== ENCOUNTER → 2024-05-07 | Outpatient (REF) | payer BC, MEDICARE | LOC: M SFHCADAM 12:33 | PROVIDERS: ATTEND Physician Assistant Medical | DX: R05.1 Acute cough (principal) ==

== ENCOUNTER 2024-09-02 11:42 | Emergency (ER) | payer BC, MEDICARE ==
[~2024-09-02] VITALS: Ht 162.6 cm; Wt 104.5 kg
[2024-09-02] MEDS: IPRATROPIUM 0.5MG/ALBUTEROL 2.5MG INH SOL UD 3ML (DUONEB) NEB ONE (13:19)
[2024-09-02 13:47] LABS: VENOUS BASE EXCESS 3.5 (-2.0-2.0); VENOUS HCO3 27.7 MMOL/L (23.0-27.0); VENOUS O2 SATURATION 96.9 % (60.0-80.0); VENOUS PARTIAL PRESSURE CO2 40.6 mmHg (38.0-50.0); VENOUS PARTIAL PRESSURE O2 94.7 mmHg (30.0-50.0); VENOUS PH 7.452 UNITS (7.330-7.430); VENOUS STANDARD HCO3 27.6 MMOL/L
[2024-09-02 13:50] LABS: BASO # 0.1 10^3/uL (0.0-0.2); BASO % 0.5 % (0.0-1.0); EOS # 0.1 10^3/uL (0.0-0.5); EOS % 0.8 % (0.0-3.0); HEMATOCRIT 33.4 % (36.0-47.0); LYMPH # 1.2 10^3/uL (1.5-5.0); LYMPH % 9.6 % (24.0-44.0); MEAN CORPUSCULAR HEMOGLOBIN 31.8 pg (27.0-33.0); MEAN CORPUSCULAR HGB CONC 32.9 g/dl (32.0-36.5); MEAN CORPUSCULAR VOLUME 96.5 fl (80.0-96.0); MONO # 0.6 10^3/uL (0.0-0.8); MONO % 4.4 % (2.0-8.0); NEUTROPHILS # 10.8 10^3/uL (1.5-8.5); NEUTROPHILS % 83.7 % (36.0-66.0); PLATELET COUNT, AUTOMATED 335 10^3/uL (150-450); RED BLOOD COUNT 3.46 10^6/uL (4.00-5.40); WHITE BLOOD COUNT 12.9 10^3/uL (4.0-10.0)
[2024-09-02 14:18] LABS: BLOOD UREA NITROGEN 18 MG/DL (9-23); CALCIUM LEVEL 8.4 MG/DL (8.3-10.6); CARBON DIOXIDE LEVEL 31 MMOL/L (20-31); CHLORIDE LEVEL 103 MMOL/L (98-107); CREATININE FOR GFR 0.86 MG/DL (0.55-1.30); GLOMERULAR FILTRATION RATE > 60.0 (>45); GLUCOSE, FASTING 171 MG/DL (74-106); POTASSIUM SERUM 3.8 MMOL/L (3.5-5.1); SODIUM LEVEL 143 MMOL/L (136-145)
[2024-09-02 14:24] LABS: PROCALCITONIN 0.17 ng/ml
[2024-09-02 15:30] VITALS: O2SAT 89
[2024-09-02] MEDS ORDERED: AMOX875T2 PO (16:28)
[2024-09-02] MEDS ORDERED: MUCI600T31 PO (16:28)
[2024-09-02] MEDS ORDERED: DEXA6TAB PO (16:29)
[2024-09-02 16:30] VITALS: BP 139/64; TEMP 98.7
[2024-09-02] MEDS: AUGMENTIN 875 MG TAB PO ONE (16:42)
[2024-09-02 16:45] VITALS: O2SAT 94
== END 2024-09-02 16:52 | disposition home or self-care (01) ==
LOC: M ED 11:42 → EDBD 11:42 → M ED 16:52
DX: J18.9 Pneumonia, unspecified organism (principal); J44.1 Chronic obstructive pulmonary disease with (acute) exacerbation; I10 Essential (primary) hypertension; E11.9 Type 2 diabetes mellitus without complications; Z87.891 Personal history of nicotine dependence; Z79.52 Long term (current) use of systemic steroids; Z79.82 Long term (current) use of aspirin; Z79.4 Long term (current) use of insulin; Z79.899 Other long term (current) drug therapy; Z79.2 Long term (current) use of antibiotics

== ENCOUNTER → 2024-10-12 | Outpatient (CLI) | payer MEDICARE ==
[~2024-10-12] MED LIST changes: +AMOX875T2 PO; +DEXA6TAB PO; +MUCI600T31 PO
[2024-10-12 10:56] LABS: BASO # 0.1 10^3/uL (0.0-0.2); BASO % 0.9 % (0.0-1.0); EOS # 0.3 10^3/uL (0.0-0.5); HEMOGLOBIN 12.4 g/dl (12.0-15.5); LYMPH # 1.9 10^3/uL (1.5-5.0); LYMPH % 35.4 % (24.0-44.0); MEAN CORPUSCULAR HEMOGLOBIN 31.9 pg (27.0-33.0); MEAN CORPUSCULAR HGB CONC 32.6 g/dl (32.0-36.5); MEAN CORPUSCULAR VOLUME 97.7 fl (80.0-96.0); MONO # 0.4 10^3/uL (0.0-0.8); MONO % 7.3 % (2.0-8.0); NEUTROPHILS # 2.7 10^3/uL (1.5-8.5); NEUTROPHILS % 50.2 % (36.0-66.0); PLATELET COUNT, AUTOMATED 282 10^3/uL (150-450); RED BLOOD COUNT 3.89 10^6/uL (4.00-5.40); WHITE BLOOD COUNT 5.4 10^3/uL (4.0-10.0)
[2024-10-12 11:18] LABS: HEMOGLOBIN A1c 6.7 % (4.0-6.0)
[2024-10-12 11:27] LABS: CREATININE, URINE 115.5 MG/DL; MAU/CREAT RATIO 10.3 MCG/MG (0.0-30.0)
[2024-10-12 11:31] LABS: FERRITIN 166.1 NG/ML (7.3-270.7); FREE T4 1.14 NG/DL (0.89-1.76); THYROID STIMULATING HORMONE 1.219 uIU/ML (0.55-4.78)
[2024-10-12 11:33] LABS: FOLATE 15.5 NG/ML (>5.4)
[2024-10-12 11:39] LABS: ALBUMIN 3.4 G/DL (3.2-5.2); BILIRUBIN,TOTAL 0.3 MG/DL (0.3-1.2); CALCIUM LEVEL 8.9 MG/DL (8.3-10.6); CHOLESTEROL RISK RATIO 3.73 (<5); CREATININE FOR GFR 1.13 MG/DL (0.55-1.30); GLOMERULAR FILTRATION RATE 53.3 (>45); HDL CHOLESTEROL 51.1 MG/DL (>40); LDL CHOLESTEROL 118.5 MG/DL (<100); NON-HDL-C 139.9 MG/DL; PERCENT SATURATION 31.1 % (13.2-45.0); POTASSIUM SERUM 4.6 MMOL/L (3.5-5.1); TOTAL PROTEIN 6.4 G/DL (5.7-8.2)
[2024-10-12 11:41] LABS: TOTAL 25(OH) VITAMIN D 29.6 NG/ML (20.0-100.0)
== END ==
LOC: M LAB 09:43
PROVIDERS: ATTEND Physician Assistant Medical
DX: E11.21 Type 2 diabetes mellitus with diabetic nephropathy (principal)

== ENCOUNTER → 2025-01-22 | Outpatient (REF) | payer MEDICARE, BC ==
[~2025-01-22] MED LIST changes: -FLOM0.4C39 PO; +TAMS-18 PO
== END ==
LOC: M SFHCDERM 13:28
PROVIDERS: ATTEND Physician Assistant
DX: C44.521 Squamous cell carcinoma of skin of breast (principal)

== ENCOUNTER → 2025-03-04 | Outpatient (REF) | payer MEDICARE, BC ==
[~2025-03-04] MED LIST changes: -IBUP-1022 PO; +IBUP600T42 PO
== END ==
LOC: M SFHCDERM 17:50
PROVIDERS: ATTEND Physician Assistant
DX: C44.529 Squamous cell carcinoma of skin of other part of trunk (principal)

== ENCOUNTER → 2025-04-13 | Outpatient (REF) | payer MEDICARE ==
[2025-04-13 17:28] LABS: BASO # 0.1 10^3/uL (0.0-0.2); BASO % 1.6 % (0.0-1.0); EOS # 0.3 10^3/uL (0.0-0.5); EOS % 5.5 % (0.0-3.0); LYMPH # 2.3 10^3/uL (1.5-5.0); LYMPH % 37.0 % (24.0-44.0); MONO # 0.5 10^3/uL (0.0-0.8); MONO % 7.6 % (2.0-8.0); NEUTROPHILS # 3.0 10^3/uL (1.5-8.5); NEUTROPHILS % 48.1 % (36.0-66.0); PLATELET COUNT, AUTOMATED 265 10^3/uL (150-450)
[2025-04-13 17:40] LABS: ESTIMATED AVERAGE GLUCOSE 137.0 MG/DL (60-110)
[2025-04-13 17:56] LABS: ALT/SGPT 18.0 U/L (7.0-40); AST/SGOT 21.0 U/L (<34); CALCIUM LEVEL 9.0 MG/DL (8.3-10.6); CARBON DIOXIDE LEVEL 30.0 MMOL/L (20-31); CHLORIDE LEVEL 106.0 MMOL/L (98-107); CHOLESTEROL LEVEL 201.0 MG/DL (<200); CHOLESTEROL RISK RATIO 3.5 (<5); CREATININE FOR GFR 0.88 MG/DL (0.55-1.30); GLOMERULAR FILTRATION RATE 71.5 (>45); LDL CHOLESTEROL 124.6 MG/DL (<100); NON-HDL-C 143.6 MG/DL; POTASSIUM SERUM 4.9 MMOL/L (3.5-5.1); SODIUM LEVEL 145.0 MMOL/L (136-145); TOTAL 25(OH) VITAMIN D 34.9 NG/ML (20.0-100.0); TRIGLYCERIDES LEVEL 95.0 MG/DL (<150)
[2025-04-13 17:57] LABS: FREE T4 1.13 NG/DL (0.89-1.76)
== END ==
LOC: M SFHCADAM 11:49
PROVIDERS: ATTEND Physician Assistant Medical
DX: E11.21 Type 2 diabetes mellitus with diabetic nephropathy (principal); I10 Essential (primary) hypertension; E78.2 Mixed hyperlipidemia; E66.01 Morbid (severe) obesity due to excess calories; J44.9 Chronic obstructive pulmonary disease, unspecified; G47.33 Obstructive sleep apnea (adult) (pediatric)

== ENCOUNTER → 2025-04-22 | Outpatient (CLI) | payer MEDICARE | LOC: M RAD 14:25 | PROVIDERS: ATTEND Physician Assistant | DX: Z12.2 Encounter for screening for malignant neoplasm of respiratory organs (principal); Z87.891 Personal history of nicotine dependence ==

== ENCOUNTER 2025-05-12 08:06 | Day surgery (SDC) | payer MEDICARE ==
[~2025-05-12] VITALS: Ht 162.6 cm; Wt 93.1 kg
[~2025-05-12 08:06] MED LIST changes: +LISI20TA33 PO
[2025-05-12] MEDS ORDERED: LIDOCAINE 2% 100 MG/5 ML SDV (FOR ANES.) As Ordered ONE (08:33)
[2025-05-12] MEDS: ALBUTEROL SULFATE 2.5 MG/0.5 ML INH CONCENTRATE NEB SOLN NEB ONE (08:45)
[2025-05-12 09:49] VITALS: TEMP 97.4
[2025-05-12 10:02] VITALS: BP 129/58; O2SAT 97
== END 2025-05-12 10:10 | disposition home or self-care (01) ==
LOC: M OPP 08:06
PROVIDERS: ATTEND Internal Medicine Gastroenterology
DX: K64.0 First degree hemorrhoids (principal); K57.30 Diverticulosis of large intestine without perforation or abscess without bleeding; Z86.0100 Personal history of colon polyps, unspecified; G47.30 Sleep apnea, unspecified; Z79.82 Long term (current) use of aspirin; Z79.84 Long term (current) use of oral hypoglycemic drugs; Z79.899 Other long term (current) drug therapy; J44.9 Chronic obstructive pulmonary disease, unspecified